=== PATIENT | female | born 1940 | race Hispanic/Latino ===

== ENCOUNTER 2017-11-16 22:37 | Inpatient (IN) | payer BC, MEDICARE ==
[~2017-11-16 22:37] MED LIST: ISOVUE-370 76%-LOCM 1 ML ONE
[2017-11-16] MEDS ORDERED: Ondansetron HCl/PF 4 MG/2 ML Vial ONE ×2 (22:47→22:52)
[2017-11-16 23:26] LABS: #Basophils 0.1 thou/uL (0.0-0.2); #Eosinphils 0.1 thou/uL (0.0-0.7); #Lymphocytes 2.8 thou/uL (1.20-3.40); #Monocytes 1.2 thou/uL (0.11-0.59); #Neutrophils 10.9 thou/uL (1.40-6.50); %Basophils 0.8 % (0.0-1.0); %Eosinophils 0.7 % (0.0-10.0); %Lymphocytes 18.3 % (21.0-51.0); %Monocytes 7.7 % (0.0-10.0); %Neutrophils 72.5 % (42.0-75.0); Hemoglobin 13.7 g/dL (12.0-16.0); Mean Corpuscular HGB CONC 32.2 g/dL (32.0-36.0); Mean Corpuscular Hemoglobin 30.3 pg (27.0-31.0); Mean Corpuscular Volume 94.3 fl (81.0-99.0); Mean Platelet Volume 8.7 fL (7.4-10.4); Platelet Count 364 thou/uL (130-400); RBC Distribution Width 12.7 % (11.5-14.5); Red Blood Cell (RBC) Count 4.52 mill/uL (4.20-5.40); White Blood Cell (WBC) Count 15.1 thou/uL (4.8-10.8)
[2017-11-16 23:39] LABS: ALT (SGPT) 17 U/L (8-55); AST (SGOT) 22 U/L (5-34); Albumin 4.6 g/dL (3.4-4.8); Alkaline Phosphatase 69 U/L (40-150); Anion Gap 18 mmol/L (10-20); BUN (Urea Nitrogen) 21 mg/dL (9.8-20.1); Bilirubin, Total 0.4 mg/dL (0.2-1.2); Calc. Creatinine Clearance 0 mL/min (70-130); Calcium 10.3 mg/dL (7.8-10.44); Carbon Dioxide 25 mmol/L (23-31); Chloride 102 mmol/L (98-107); Estimated GFR-MDRD 61; Globulin 3.3 g/dL (2.4-3.5); Glucose 117 mg/dL (83-110); Lipase 263 U/L (8-78); Potassium 4.9 mmol/L (3.5-5.1); Protein, Total 7.9 g/dL (6.0-8.3); Sodium 140 mmol/L (136-145)
[2017-11-16 23:43] LABS: CKMB 2.6 ng/mL (0-6.6); Troponin I Less than 0.010 ng/mL (< 0.028)
[2017-11-17 01:18] LABS: Bilirubin Negative (Negative); Blood, Urine Negative (Negative); Clarity CLEAR (Clear); Glucose, Urine (Dipstick) Negative (Negative); Leukocyte Negative (Negative); Nitrite Negative (Negative); Protein, Urine (Dipstick) Negative (Neg-Trace); pH, Urine 6.5 (5.0-9.0)
[2017-11-17 01:22] LABS: Specific Gravity, Urine 1.044 (1.002-1.036)
[2017-11-17] MEDS ORDERED: Ondansetron HCl/PF 4 MG/2 ML Vial IVP PRN (03:00)
[2017-11-17] MEDS ORDERED: Ondansetron ODT 4 MG TAB SL PRN (03:00)
[2017-11-17] MEDS ORDERED: Acetaminophen 325 MG TAB PO PRN (03:00)
[2017-11-17] MEDS: Sodium Chloride 0.9% 1,000 ML IV SCH ×3 (03:30→15:45)
--- NOTE | 2017-11-17 03:49 | HP ---
DATE OF ADMISSION: 11/17/2017 TIME OF SERVICE: 0130 hours. PRIMARY CARE PHYSICIAN: Rehan Joyner MD PRIMARY CABINET AND TRIM INSTALLER: Jacobo Moran MD CHIEF COMPLAINT: Abdominal pain, nausea, and vomiting. HISTORY OF PRESENT ILLNESS: Ms. Louis is a pleasant 77-year-old female with history of past small christopher wel obstruction and pancreatitis, hyperlipidemia, hypertension, GERD, mitral regurg, and glaucoma who presents to the emergency department after acute onset of abdominal pain at 1900 hours after dinner. Patient stated that she ate and suddenly developed nausea and vomiting, abdominal pain that seemed to radiate to her back. She has vomited four times and fairly rapid succession, decided to present to the emergency department for evaluation. Here she was seen, she got fluids, Zofran and morphine and feels much better. Labs showed white coun t of 15,000, but no bands, she has normal creatinine, lipase was elevated at 263. A CT scan report w as pending, there is no acute pathology seen by me. We were called for admission. The patient is comfortable. She denies any fevers or chills, no diarrhea or constipation. She has n ot passed gas since being in the ER. PAST MEDICAL HISTORY: 1. Small-bowel obstruction in the past in 2016. 2. Pancreatitis, the last in 2014. 3. Hyperlipidemia. 4. Hypertension. 5. GERD. 6. Mitral regurgitation. 7. Glaucoma. PAST SURGICAL HISTORY: 1. Tonsillectomy remotely. 2. Esophageal tear repair after iatrogenic tear during a dilation. 3. Laminectomy to her back in 1979. 4. Bladder sling in 1999. 5. Appendectomy. 6. Cholecystectomy. She had a gallbladder drain placed in 2003 and since then her gallbladder has n ot been seen on any imaging. 7. Hysterectomy in 1967. 8. Left-hand ganglion cyst removal in 1974 and a right salpingo-oophorectomy in 1981 for benign cyst . HOME MEDICATIONS: 1. Pravastatin 40 mg p.o. at bedtime. 2. Toprol-XL 50 mg p.o. at bedtime. 3. Synthroid 175 mcg daily. 4. Zofran as needed. 5. Timoptic 0.5% both eyes daily. 6. Vitamin B12 of 1000 mcg IM every 2 weeks. 7. Aspirin 81 mg daily. 8. MiraLax 17 grams p.o. daily. 9. Protonix 40 mg p.o. q.a.m. ALLERGIES: STADOL causes a bad reaction and PHENERGAN IV caused a bad reaction too, she could not el ucidate. SOCIAL HISTORY: Negative for habits x3. FAMILY HISTORY: Negative for clotting or bleeding source, no immune dysfunction, no blood tumors. PHYSICAL EXAMINATION: VITAL SIGNS: Temperature 97.9, pulse 81, blood pressure 128/76, respiratory rate 16, sat 98% on 2 li ters. GENERAL: She is awake. She is alert. She is oriented x3. She is well-developed, well-nourished [place] female, appears in no distress. HEENT: Normocephalic, atraumatic. Pupils equal, round, react to light bilaterally. Mucous membrane s are moist. She has no visible lesion, no thrush. NECK: Supple, without lymphadenopathy, JVD, or thyromegaly. She has normal carotid upstrokes withou t bruits. RESPIRATORY: Lungs clear to auscultation bilaterally. She had no wheezes, no rales or rhonchi. LUNGS: She has good air movement with symmetrical chest excursion. CARDIOVASCULAR: She has normal cardiac and regular. She has normal S1, S2. No S3 or S4. She did h ave a holosystolic murmur 3/6 at the apex. ABDOMEN: Soft. It is distended. She has a ventral hernia that is not incarcerated. She has hypera ctive bowel sounds present in all 4 quadrants. There is no tenderness. There is no rebound, rigidit y, or guarding. EXTREMITIES: Show no cyanosis, no clubbing, no edema with 1+ peripheral pulse in the dorsalis pedis and posterior tibial artery. SKIN: Warm, moist, and well perfused. She has no other rashes or lesions. NEUROLOGIC: Cranial nerves II through XII are grossly intact. She has no focal deficits. She has 5 /5 strength in all 4 extremities. She has normal speech pattern. MUSCULOSKELETAL: Normal to inspection. All large joints are normal to inspection. She has no infla mmation. No palpable effusions. LABORATORY DATA: Sodium 140, potassium 4.9, chloride 102, bicarbonate 25, BUN 21, creatinine 0.89, c alcium 10.3, and glucose 117. Her liver functions are completely within normal limits. Lipase 263. CBC showed white count of 15.1, hemoglobin 13.7, hematocrit 42.6, and platelet count 364,000. She h as 73% granulocytes and 80% lymphocytes. Urinalysis is negative. CT scan of the abdomen and pelvis did not show any acute pathology to me. Waiting for final report. ASSESSMENT AND PLAN: 1. Probable acute pancreatitis. Lipase is 263. Make her n.p.o., placed on IV fluids, pain control, nausea control. Placed her on the medical floor and watch. 2. History of small-bowel obstruction. She has good bowel sounds. She had a bowel movement this mo rning. We would not place an NG tube, her nausea is very well controlled now. 3. Hyperlipidemia. We will hold her pravastatin. 4. Hypertension. We will hold her Toprol. 5. Hypothyroidism. We will hold her Synthroid for now. 6. Gastroesophageal reflux disease. We will use IV Protonix. 7. History of mitral regurgitation, stable. 8. Glaucoma. We will continue her Timoptic. Dr. Garland from Surgery has been consulted, we will follow along.
[2017-11-17 03:58] VITALS: BMI 25.2
--- NOTE | 2017-11-17 08:04 | CT ---
PRELIMINARY REPORT/[facility]/EMERGENCY AFTER-HOURS PROCEDURE: EXAM: CT Abdomen and Pelvis With Intravenous Contrast CLINICAL HISTORY: 77 years old, female; Pain; Abdominal pain; Generalized; Patient HX: Abd pain TECHNIQUE: Axial computed tomography images of the abdomen and pelvis with intravenous contrast. Coronal reformatted images were created and reviewed. CONTRAST: 60 mL of ISOVUE administered intravenously. COMPARISON: No relevant prior studies available. FINDINGS: Lower thorax: No acute disease. ABDOMEN: Liver: No acute findings. No mass. Gallbladder and bile ducts: Gallbladder has been removed. There is mild biliary dilation which is mos t likely secondary to cholecystectomy. Pancreas: No acute findings. No mass. No ductal dilation. Spleen: Splenectomy. Adrenals: No acute findings. No mass. Kidneys and ureters: No acute findings. No solid mass. No hydronephrosis. Stomach and bowel: Gastrojejunostomy. Esophageal and gastric fluid distention with dilated proximal a nd mid small bowel loops. Small bowel measures up to 3.7 cm in luminal diameter. Transition point is difficult to delineate but appears to reside in the left lower quadrant. Findings are consistent with mid small bowel obstruction. There is small right paramedian infraumbilical leve l hernia containing short segment of small bowel, however this does not appear to be a transition poi nt. Appendix: The appendix is not visualized. PELVIS: Bladder: No acute findings. No mass. Reproductive: Uterus has been removed. ABDOMEN and PELVIS: Intraperitoneal space: No acute findings. No free air. No significant fluid collection. Bones/joints: Chronic degenerative spinal changes without acute fracture or dislocation. Soft tissues: See above. Vasculature: There are atheromatous changes of the abdominal aorta without aneurysm. Lymph nodes: No acute findings. No enlarged lymph nodes. IMPRESSION: Findings most consistent with mid small bowel obstruction. Gastrojejunostomy. Right ventral wall infraumbilical level hernia containing short segment small bowel. Thank you for allowing us to participate in the care of your patient. Dictated and Authenticated by: Magen Flores MD 11/17/2017 12:55 AM Central Time ([place] & [place]) FINAL REPORT ABDOMEN CT WITH CONTRAST PELVIC CT WITH CONTRAST: Date: 11/16/17 HISTORY: Abdominal pain. Previous surgery. Previous pancreatitis. History of small bowel obstruction. COMPARISON: 06/12/16. TECHNIQUE: Abdomen and pelvic CT are performed with IV contrast. Enteric contrast not administered. Coronal refo rmatted images submitted for interpretation. FINDINGS: This report is in agreement with the preliminary report by Kamla. There is a right ventral abdominal w all hernia containing short segment of small bowel. No associated bowel incarceration. Findings are s imilar to the previous examination. Though there is evidence of a small bowel obstruction, this does not appear to be a transition point. Previous postsurgical changes have been described in the prelimi nary report by Kamla. There is fluid attenuation in the esophagus. Associated hiatal hernia is noted. IMPRESSION: Small bowel obstruction. Additional findings as above. POS: [facility]
[2017-11-17] MEDS ORDERED: Pantoprazole 40 MG VIAL IVP SCH (09:00)
[2017-11-17] MEDS: Timolol 0.5% Ophth Soln 5 ml Bottle EA EYE SCH (09:18)
[2017-11-17] MEDS: Ondansetron HCl/PF 4 MG/2 ML Vial IVP PRN ×3 (09:19→22:07)
[2017-11-17 09:22] LABS: #Eosinphils 0.1 thou/uL (0.0-0.7); #Lymphocytes 2.5 thou/uL (1.20-3.40); #Neutrophils 6.5 thou/uL (1.40-6.50); %Basophils 0.2 % (0.0-1.0); %Eosinophils 1.3 % (0.0-10.0); %Lymphocytes 24.7 % (21.0-51.0); %Neutrophils 63.8 % (42.0-75.0); Hemoglobin 11.5 g/dL (12.0-16.0); Mean Corpuscular HGB CONC 32.1 g/dL (32.0-36.0); Mean Corpuscular Hemoglobin 30.3 pg (27.0-31.0); Mean Corpuscular Volume 94.5 fl (81.0-99.0); Platelet Count 325 thou/uL (130-400); RBC Distribution Width 12.6 % (11.5-14.5); Red Blood Cell (RBC) Count 3.78 mill/uL (4.20-5.40); White Blood Cell (WBC) Count 10.2 thou/uL (4.8-10.8)
[2017-11-17 09:46] LABS: ALT (SGPT) 17 U/L (8-55); AST (SGOT) 27 U/L (5-34); Albumin 3.4 g/dL (3.4-4.8); Alkaline Phosphatase 55 U/L (40-150); Anion Gap 10 mmol/L (10-20); BUN (Urea Nitrogen) 14 mg/dL (9.8-20.1); Bilirubin, Total 0.4 mg/dL (0.2-1.2); Calc. Creatinine Clearance 70 mL/min (70-130); Calcium 8.3 mg/dL (7.8-10.44); Carbon Dioxide 28 mmol/L (23-31); Chloride 105 mmol/L (98-107); Estimated GFR-MDRD 82; Globulin 2.4 g/dL (2.4-3.5); Glucose 96 mg/dL (83-110); Lipase 116 U/L (8-78); Magnesium 1.8 mg/dL (1.6-2.6); Potassium 3.8 mmol/L (3.5-5.1); Protein, Total 5.8 g/dL (6.0-8.3); Sodium 139 mmol/L (136-145)
[2017-11-17] MEDS ORDERED: Polyethylene Glycol 3350 17 GM Packet PO PRN (13:46)
--- NOTE | 2017-11-17 13:49 | PDOC.PN ---
- Subjective Encounter Start Date: 11/17/17 Encounter Start Time: 13:05 Subjective: f/u for acute pancreatitis and partial SBO tx with NPO, IVF's and pain -: control. Feeling much better today. No n/v. No abd pain. - Objective Resuscitation Status: Resuscitation Status FULL:Full Resuscitation MAR Reviewed: Yes Vital Signs & Weight: Vital Signs (12 hours) Temp Pulse Resp BP BP Pulse Ox 11/17/17 11:16 98.1 F 73 18 113/71 96 11/17/17 09:18 86 143/85 H 11/17/17 08:00 98.1 F 73 18 11/17/17 07:42 97.7 F 86 18 143/85 H 96 11/17/17 04:10 98.0 F 85 18 96 11/17/17 04:00 98.0 F 85 18 96 11/17/17 03:06 98.0 F 85 18 150/84 H 97 Weight Weight 147 lb 0.773 oz I&O: 11/16/17 11/17/17 11/18/17 06:59 06:59 06:59 Intake Total 375 Balance 375 Result Diagrams: 11/17/17 08:57 11/17/17 08:57 Additional Labs: Microbiology 11/17/17 01:00 Urine clean catch Urine Culture - Preliminary NO GROWTH AT 12 HOURS Laboratory Tests 11/16/17 11/16/17 11/17/17 22:51 22:51 08:57 WBC 15.1 H Lipase 263 H 116 H Radiology Reviewed by me: Yes (CT abd/pelv - + SBO) Phys Exam - Physical Examination Constitutional: NAD HEENT: PERRLA, oral pharynx no lesions Neck: no JVD, supple Respiratory: no wheezing, clear to auscultation bilateral Cardiovascular: RRR Gastrointestinal: soft, non-tender, no distention, positive bowel sounds Musculoskeletal: no edema, pulses present Neurological: normal sensation, moves all 4 limbs Psychiatric: A&O x 3 Skin: normal turgor, cap refill <2 seconds Dx/Plan (1) Small bowel obstruction Code(s): K56.69 - OTHER INTESTINAL OBSTRUCTION * DO NOT USE * Status: Acute Comment: Clinically resolving, start clear liquids, decrease IVF 75ml/h, OOB/ ambulate (2) Acute pancreatitis Code(s): K85.9 - ACUTE PANCREATITIS, UNSPECIFIED * DO NOT USE * Status: Acute Comment: Improved, ? etiology, repeat Lipase in am, start clear liquids (3) Nausea & vomiting Code(s): R11.2 - NAUSEA WITH VOMITING, UNSPECIFIED Status: Acute Comment: Secondary to #1, #2, resolved (4) HTN (hypertension) Code(s): I10 - ESSENTIAL (PRIMARY) HYPERTENSION Status: Chronic Qualifiers: Hypertension type: essential hypertension Qualified Code(s): I10 - Essential (primary) hypertension Comment: Resume Metoprolol - Plan plan discussed w/ family, out of bed/ambulate, DVT proph w/SCDs Stable overall -: Decrease IVF 75ml/h -: Start clear liquids -: OOB/ambulate -: AM lab: CMP, CBC, Lipase * Likely home in 24h if continues clinical improvement and tolerates diet
[2017-11-17] MEDS: Acetaminophen 325 MG TAB PO PRN (22:03)
[2017-11-18] MEDS: Sodium Chloride 0.9% 1,000 ML IV SCH (03:35)
[2017-11-18 05:36] LABS: ALT (SGPT) 13 U/L (8-55); AST (SGOT) 18 U/L (5-34); Albumin 3.1 g/dL (3.4-4.8); Alkaline Phosphatase 51 U/L (40-150); Anion Gap 9 mmol/L (10-20); BUN (Urea Nitrogen) 8 mg/dL (9.8-20.1); Bilirubin, Total 0.5 mg/dL (0.2-1.2); Calc. Creatinine Clearance 73 mL/min (70-130); Calcium 8.2 mg/dL (7.8-10.44); Carbon Dioxide 26 mmol/L (23-31); Chloride 109 mmol/L (98-107); Estimated GFR-MDRD 86; Globulin 2.3 g/dL (2.4-3.5); Glucose 81 mg/dL (83-110); Lipase 29 U/L (8-78); Potassium 3.8 mmol/L (3.5-5.1); Protein, Total 5.4 g/dL (6.0-8.3); Sodium 140 mmol/L (136-145)
[2017-11-18 06:00] LABS: Band 5 % (5-11); Eosinophils 2 % (0-10); Lymphocytes 41 % (21-51); MDiff Complete? YES; Mean Corpuscular HGB CONC 31.8 g/dL (32.0-36.0); Mean Corpuscular Hemoglobin 30.3 pg (27.0-31.0); Mean Corpuscular Volume 95.4 fl (81.0-99.0); Mean Platelet Volume 8.3 fL (7.4-10.4); Monocytes 8 % (0-10); Neutrophil 44 % (42-75); Platelet Count 307 thou/uL (130-400); RBC Distribution Width 12.7 % (11.5-14.5); Red Blood Cell (RBC) Count 3.63 mill/uL (4.20-5.40); White Blood Cell (WBC) Count 5.9 thou/uL (4.8-10.8)
[2017-11-18] MEDS: Levothyroxine Sodium 75 MCG TAB PO SCH (06:26)
[2017-11-18] MEDS: Timolol 0.5% Ophth Soln 5 ml Bottle EA EYE SCH (08:22)
[2017-11-18] MEDS ORDERED: Furosemide 20 MG/2 ML VIAL SLOW IVP SCH (10:00)
[2017-11-18] MEDS: Ondansetron HCl/PF 4 MG/2 ML Vial IVP PRN (11:49)
--- NOTE | 2017-11-18 11:51 | PDOC.PN ---
- Subjective Encounter Start Date: 11/18/17 Encounter Start Time: 08:00 Pt seen for followup re: bowel obstruction. Passing flatus, tolerating clear fluid diet well. No nausea or vomiting. No abdo cramps. - Objective Resuscitation Status: Resuscitation Status FULL:Full Resuscitation Vital Signs & Weight: Vital Signs (12 hours) Temp Pulse Resp BP BP Pulse Ox 11/18/17 08:33 98.2 F 75 16 128/74 93 L 11/18/17 08:22 65 128/74 11/18/17 08:00 98.2 F 75 16 93 L Weight Weight 147 lb 0.773 oz I&O: 11/17/17 11/18/17 11/19/17 06:59 06:59 06:59 Intake Total 375 3510 Balance 375 3510 Result Diagrams: 11/18/17 04:43 11/18/17 04:43 Phys Exam - Physical Examination Constitutional: NAD HEENT: moist MMs Neck: supple Respiratory: clear to auscultation bilateral Cardiovascular: RRR Gastrointestinal: soft, non-tender, positive bowel sounds Neurological: moves all 4 limbs Psychiatric: normal affect Skin: no rash Dx/Plan (1) Bowel obstruction Code(s): K56.609 - UNSP INTESTNL OBST, UNSP TO PARTIAL VERSUS COMPLETE OBST Status: Acute (2) HTN (hypertension) Code(s): I10 - ESSENTIAL (PRIMARY) HYPERTENSION Status: Chronic Qualifiers: Hypertension type: essential hypertension Qualified Code(s): I10 - Essential (primary) hypertension (3) GERD (gastroesophageal reflux disease) Code(s): K21.9 - GASTRO-ESOPHAGEAL REFLUX DISEASE WITHOUT ESOPHAGITIS Status: Chronic (4) Acute pancreatitis Code(s): K85.9 - ACUTE PANCREATITIS, UNSPECIFIED * DO NOT USE * Status: Resolved - Plan * . Pt clinically improving. Advance diet to full fluid. gastrograffin study. Start Lasix, stop IV fluids (pt was supposed on lasix at home, did not start it yet). Review of Systems - Review of Systems Respiratory: negative: Cough, Dry, Shortness of Breath, Hemoptysis, SOB with Excertion, Pleuritic Pain, Sputum, Wheezing Cardiovascular: negative: chest pain, palpitations, orthopnea, paroxysmal nocturnal dyspnea, edema, light headedness Gastrointestinal: Constipation. negative: Nausea, Vomiting, Abdominal Pain, Diarrhea, Melena, Hematochezia - Medications/Allergies Allergies/Adverse Reactions: Allergies Allergy/AdvReac Type Severity Reaction Status Date / Time butorphanol tartrate Allergy Verified 10/05/14 02:30 [From Stadol] Medications: Current Medications Acetaminophen (Tylenol) 650 mg PO Q4H PRN PRN Reason: Headache/Fever or Pain Last Admin: 11/17/17 22:03 Dose: 650 mg Furosemide (Lasix) 10 mg SLOW IVP NOW [facility] Stop: 11/18/17 12:00 Last Admin: 11/18/17 10:28 Dose: 10 mg Levothyroxine Sodium (Synthroid) 75 mcg PO 0600 [facility] Last Admin: 11/18/17 06:26 Dose: 75 mcg Metoprolol Succinate (Toprol Xl) 50 mg PO DAILY [facility] Last Admin: 11/18/17 08:22 Dose: 50 mg Ondansetron HCl (Zofran) 4 mg IVP Q6H PRN PRN Reason: Nausea/Vomiting Last Admin: 11/18/17 11:49 Dose: 4 mg Pantoprazole Sodium (Protonix) 40 mg PO BID [facility] Last Admin: 11/18/17 08:22 Dose: 40 mg Polyethylene Glycol (Miralax) 17 gm PO DAILYPRN PRN PRN Reason: Constipation Last Admin: 11/18/17 08:29 Dose: 17 gm Timolol Maleate (Timoptic 0.5% Ophth Soln) 1 drop EA EYE DAILY [facility] Last Admin: 11/18/17 08:22 Dose: 1 drop
[2017-11-18] MEDS ORDERED: MD-Gastroview 120 ML BOT ONE (13:00)
--- NOTE | 2017-11-18 13:56 | RAD ---
SMALL BOWEL FOLLOW THROUGH: History Abdominal pain. Abnormal CAT scan. Partial bowel obstruction. FINDINGS: Gastrografin contrast was administered. Small hiatal hernia and gastroesophageal reflux are apparent . Small bowel is now decompressed. At 15 minutes, there is contrast within the colon and rectum. IMPRESSION: 1. Rapid small bowel transit. No evidence of ongoing obstruction. 2. Small hiatal hernia. Gastroesophageal reflux. POS: [facility]
[2017-11-18] MEDS: Acetaminophen 325 MG TAB PO PRN (15:21)
[2017-11-19] MEDS: Acetaminophen 325 MG TAB PO PRN (00:32)
[2017-11-19] MEDS: Levothyroxine Sodium 75 MCG TAB PO SCH (05:33)
[2017-11-19 08:22] LABS: #Basophils 0.1 thou/uL (0.0-0.2); #Eosinphils 0.1 thou/uL (0.0-0.7); #Lymphocytes 2.3 thou/uL (1.20-3.40); #Monocytes 0.6 thou/uL (0.11-0.59); #Neutrophils 3.5 thou/uL (1.40-6.50); %Basophils 1.4 % (0.0-1.0); %Eosinophils 2.2 % (0.0-10.0); %Lymphocytes 35.3 % (21.0-51.0); %Monocytes 8.8 % (0.0-10.0); %Neutrophils 52.4 % (42.0-75.0); Hemoglobin 12.3 g/dL (12.0-16.0); Mean Corpuscular HGB CONC 31.5 g/dL (32.0-36.0); Mean Corpuscular Hemoglobin 29.7 pg (27.0-31.0); Mean Corpuscular Volume 94.3 fl (81.0-99.0); Mean Platelet Volume 7.9 fL (7.4-10.4); Platelet Count 343 thou/uL (130-400); RBC Distribution Width 12.7 % (11.5-14.5); Red Blood Cell (RBC) Count 4.15 mill/uL (4.20-5.40); White Blood Cell (WBC) Count 6.6 thou/uL (4.8-10.8)
[2017-11-19 08:51] LABS: Anion Gap 10 mmol/L (10-20); BUN (Urea Nitrogen) 10 mg/dL (9.8-20.1); Calc. Creatinine Clearance 66 mL/min (70-130); Calcium 9.1 mg/dL (7.8-10.44); Carbon Dioxide 30 mmol/L (23-31); Chloride 103 mmol/L (98-107); Estimated GFR-MDRD 77; Glucose 89 mg/dL (83-110); Potassium 3.6 mmol/L (3.5-5.1); Sodium 139 mmol/L (136-145)
[2017-11-19] MEDS ORDERED: Furosemide 20 MG TAB PO SCH (09:00)
[2017-11-19] MEDS: Timolol 0.5% Ophth Soln 5 ml Bottle EA EYE SCH (09:09)
[2017-11-19 09:10] VITALS: BP 147/82
[2017-11-19 10:14] VITALS: TEMP 98
--- NOTE | 2017-11-19 18:39 | DIS ---
PRIMARY CARE PHYSICIAN: Rehan Joyner M.D. DATE OF ADMISSION: 11/17/2017 DATE OF DISCHARGE: 11/19/2017 DISCHARGE DIAGNOSES: 1. Bowel obstruction. 2. Acute pancreatitis. CONDITION OF PATIENT AT THE TIME OF DISCHARGE: Stable. I assessed Ms. Louis on the day of discharge . She denies any chest pain or shortness of breath. She is tolerating diet well. Vital signs are s table. S1 and S2 are heard, regular. Lungs are clear to auscultation bilaterally. Abdomen is soft, nontender, bowel sounds are heard. DISCHARGE MEDICATIONS: No changes were made to her preadmission home medications as dictated on hist ory and physical note from 11/17/2017. HOSPITAL COURSE: Ms. Louis is a pleasant 77-year-old lady who was admitted to [facility] for abdominal pain. CT scan done at the time of admission showed a right ventral abdomin al wall hernia containing short segment of small bowel without any associated bowel incarceration. T here was evidence of small-bowel obstruction. She also had elevated lipase. She was kept n.p.o. and treated with intravenous fluids. She clinically improved. She started passi ng flatus. On 11/18/2017, she had small bowel x-rays, which did not show any evidence of ongoing obs truction. Her lipase also normalized. Her abdominal pain resolved. She had diarrhea, most likely s econdary to Gastrografin small bowel study. Clostridium difficile toxin test was negative. She is b eing discharged home in a stable condition and advised to follow up with her primary care physician i n 3-5 days. On the day of discharge, she has normal white count, normal hemoglobin, normal platelet count, and a normal Chem-7. Many thanks for allowing me to participate in your patient's care. Please feel free to contact me wi th any questions or concerns. DISCHARGE DESTINATION: Home. TOTAL AMOUNT OF TIME SPENT COORDINATING THIS DISCHARGE: 18 minutes.
== END 2017-11-19 17:06 | disposition home or self-care (01) | DRG 393 ==
LOC: ERS 22:37 → T4-A 11-17 01:20
PROVIDERS: ADMIT Internal Medicine Infectious Disease; ATTEND Internal Medicine Infectious Disease
DX: K43.6 Other and unspecified ventral hernia with obstruction, without gangrene (principal); K85.90 Acute pancreatitis without necrosis or infection, unspecified; I10 Essential (primary) hypertension; K21.9 Gastro-esophageal reflux disease without esophagitis; E78.5 Hyperlipidemia, unspecified; E03.9 Hypothyroidism, unspecified; H40.9 Unspecified glaucoma
CPT/HCPCS: 36415; 74177; 74250; 80048; 80053; 81003; 82553; 83690; 83735; 84484; 85007; 85025; 85027; 87086; 87324; 87449; 93005; 94760; 96372; 96374; 96375; C9113; J1940; J2405

== ENCOUNTER 2018-04-06 08:39 | Outpatient (CLI) | payer MEDICARE, BC ==
[2018-04-06] MEDS ORDERED: ISOVUE-370 76%-LOCM 1 ML ONE (12:11)
== END 2018-04-06 08:40 | disposition home or self-care (01) ==
LOC: BICCT 08:39
PROVIDERS: ATTEND Surgery
DX: R74.8 Abnormal levels of other serum enzymes (principal); R10.13 Epigastric pain; Z98.890 Other specified postprocedural states; K44.9 Diaphragmatic hernia without obstruction or gangrene; Z90.49 Acquired absence of other specified parts of digestive tract; Z90.81 Acquired absence of spleen
CPT/HCPCS: 74170; 82565

== ENCOUNTER 2018-04-09 09:43 | Observation (INO) | payer BC, MEDICARE ==
[2018-04-09 10:20] LABS: #Eosinphils 0.1 thou/uL (0.0-0.7); #Lymphocytes 1.6 thou/uL (1.20-3.40); #Monocytes 0.9 thou/uL (0.11-0.59); #Neutrophils 5.4 thou/uL (1.40-6.50); %Basophils 0.4 % (0.0-1.0); %Eosinophils 1.6 % (0.0-10.0); %Lymphocytes 19.9 % (21.0-51.0); %Monocytes 11.6 % (0.0-10.0); %Neutrophils 66.6 % (42.0-75.0); Hemoglobin 13.4 g/dL (12.0-16.0); Mean Corpuscular HGB CONC 32.9 g/dL (32.0-36.0); Mean Corpuscular Hemoglobin 30.3 pg (27.0-31.0); Mean Corpuscular Volume 92.3 fL (78.0-98.0); Mean Platelet Volume 7.8 fL (7.4-10.4); Platelet Count 328 thou/uL (130-400); RBC Distribution Width 12.2 % (11.5-14.5); Red Blood Cell (RBC) Count 4.42 mill/uL (4.20-5.40); White Blood Cell (WBC) Count 8.2 thou/uL (4.8-10.8)
[2018-04-09 10:34] LABS: ALT (SGPT) 21 U/L (8-55); AST (SGOT) 23 U/L (5-34); Albumin 4.3 g/dL (3.4-4.8); Alkaline Phosphatase 57 U/L (40-150); Anion Gap 15 mmol/L (10-20); BUN (Urea Nitrogen) 24 mg/dL (9.8-20.1); Bilirubin, Total 0.4 mg/dL (0.2-1.2); CK (CPK) 84 U/L (29-168); Calc. Creatinine Clearance 0 mL/min (70-130); Calcium 9.3 mg/dL (7.8-10.44); Carbon Dioxide 24 mmol/L (23-31); Chloride 104 mmol/L (98-107); Estimated GFR-MDRD 62; Globulin 3.3 g/dL (2.4-3.5); Lipase 94 U/L (8-78); Protein, Total 7.6 g/dL (6.0-8.3); Sodium 139 mmol/L (136-145)
[2018-04-09 10:39] LABS: Glucose 50 mg/dL (83-110)
[2018-04-09 10:44] LABS: CKMB 1.4 ng/mL (0-6.6); Troponin I Less than 0.010 ng/mL (< 0.028)
[2018-04-09] MEDS ORDERED: Dextrose 50% Abboject 50 ML SYRINGE ONE (10:52)
--- NOTE | 2018-04-09 11:04 | RAD ---
SINGLE VIEW OF CHEST: Date: 04/09/18 COMPARISON: 05/14/04. HISTORY: Nausea and vomiting. Extreme abdominal pain for the past few days. FINDINGS: Single view of the chest shows a normal sized cardiomediastinal silhouette. There is no evidence of c onsolidation, mass, or pleural effusion. The bones are unremarkable. IMPRESSION: No evidence of acute cardiopulmonary disease. POS: [facility]
[2018-04-09 14:18] VITALS: BMI 23.8
[2018-04-09] MEDS ORDERED: Ondansetron ODT 4 MG TAB SL PRN (14:59)
[2018-04-09] MEDS ORDERED: Ondansetron HCl/PF 4 MG/2 ML Vial IVP PRN (14:59)
[2018-04-09] MEDS ORDERED: D5 1/2 NS w/20 mEq KCL 1,000 ML IV SCH (15:00)
[2018-04-09] MEDS: Dextrose 5 % And 0.9 % NaCl 1,000 ML IV SCH (15:37)
[2018-04-09] MEDS ORDERED: cefTRIAXone\\ROCEPHIN 1 GM in Sodium Chloride 0.9% 100 ML IVPB SCH (16:00)
[2018-04-09] MEDS ORDERED: Acetaminophen 325 MG TAB PO PRN (17:58)
[2018-04-10] MEDS: Dextrose 5 % And 0.9 % NaCl 1,000 ML IV SCH ×2 (02:48→12:38)
[2018-04-10 05:13] LABS: #Basophils 0.1 thou/uL (0.0-0.2); #Eosinphils 0.3 thou/uL (0.0-0.7); #Lymphocytes 2.5 thou/uL (1.20-3.40); #Neutrophils 2.8 thou/uL (1.40-6.50); %Basophils 1.6 % (0.0-1.0); %Monocytes 14.7 % (0.0-10.0); %Neutrophils 41.8 % (42.0-75.0); Hemoglobin 11.7 g/dL (12.0-16.0); Mean Corpuscular HGB CONC 31.5 g/dL (32.0-36.0); Mean Corpuscular Hemoglobin 29.5 pg (27.0-31.0); Mean Corpuscular Volume 93.8 fL (78.0-98.0); Mean Platelet Volume 7.6 fL (7.4-10.4); Platelet Count 291 thou/uL (130-400); RBC Distribution Width 12.2 % (11.5-14.5); Red Blood Cell (RBC) Count 3.95 mill/uL (4.20-5.40); White Blood Cell (WBC) Count 6.6 thou/uL (4.8-10.8)
[2018-04-10 05:29] LABS: Anion Gap 10 mmol/L (10-20); BUN (Urea Nitrogen) 14 mg/dL (9.8-20.1); Calc. Creatinine Clearance 65 mL/min (70-130); Calcium 8.8 mg/dL (7.8-10.44); Carbon Dioxide 30 mmol/L (23-31); Chloride 105 mmol/L (98-107); Estimated GFR-MDRD 78; Glucose 96 mg/dL (83-110); Potassium 4.5 mmol/L (3.5-5.1); Sodium 140 mmol/L (136-145)
[2018-04-10] MEDS ORDERED: Levothyroxine Sodium 75 MCG TAB PO SCH (06:00)
[2018-04-10] MEDS ORDERED: Aspirin 81 mg Enteric Coated Tablet PO SCH (09:00)
[2018-04-10] MEDS ORDERED: Timolol 0.5% Ophth Soln 5 ml Bottle EA EYE SCH (09:00)
[2018-04-10 11:25] VITALS: BP 123/58; TEMP 97.8
--- NOTE | 2018-04-10 13:53 | HP ---
CHIEF COMPLAINT: Abdominal pain, nausea, vomiting. HISTORY OF PRESENT ILLNESS: The patient is a very pleasant 77-year-old female with multiple surgical history, who presented to the hospital with complaints of abdominal pain, nausea, vomiting x1 today. 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 Denies any fevers or chills. The patient stated that about 3-4 days ago, she had s ome soft loose stools which currently have resolved. The patient denies any other mentioned fevers, chills, chest pain or pressure. She did have vomiting x1. She did have abdominal pain. Currently, the patient denies any abdominal pain. She states that she gets abdominal pain about 30-40 minutes a fter she eats. She normally follows up with her GI in [place] who has an extensive surgery on her in [place]. The patient had a CAT scan done on Monday, which essentially was normal. PAST SURGICAL HISTORY: Splenectomy, tonsillectomy, appendectomy, cholecystectomy, laminectomy, hyste rectomy with unilateral oophorectomy. PAST MEDICAL HISTORY: Significant for esophageal wrap back in 2003 for GERD. She had esophageal dil ation. She has had a history of esophageal rupture with mediastinitis. She has a history of a large ventral hernia. She has a history of hypothyroidism, history of hypocholesterolemia. ALLERGIES: She is allergic to STADOL. CURRENT MEDICATIONS: She takes Protonix 40 mg daily, Zofran p.r.n., Timoptic eyedrops to each eye da isra, B12 sublingual, aspirin 81 mg daily, Pravachol 40 mg at bedtime, metoprolol 50 mg daily, and Syn throid. She initially takes 75 mcg daily. SOCIAL HISTORY: She is , has been taking care of her sick . Denies any alcohol or shad g use or smoking history. REVIEW OF SYSTEMS: All negative except for ones mentioned above in the HPI. PHYSICAL EXAMINATION: VITAL SIGNS: Temperature of 97.7, 56, 15, 93% on room air, 127/67. GENERAL: She is awake, alert, oriented. She does not appear in distress. HEENT: Normocephalic, atraumatic. No lymphadenopathy noted. Her mucous membranes does not appear t o be dry. CARDIOVASCULAR: S1, S2 present. No murmurs, rubs or gallops. LUNGS: Clear to auscultation. No rhonchi or wheezes noted. ABDOMEN: Obese. Bowel sounds are present x2. She does have a large hernia that is appreciated. No pain upon palpation to all around her abdomen area; however, she did have some tenderness upon palpa tion around her xiphoid process. EXTREMITIES: No edema. Pedal pulses present x2. NEUROLOGIC: No focal neurological deficits noted. SKIN: Intact. No rashes or lesions noted. LABORATORY DATA: As of the following, WBC of 8.2, hemoglobin 13.4, hematocrit 40.8, platelets of 328 . Chemistry shows sodium of 140, potassium of 4.5, BUN of 14, creatinine 0.72. Lipase initially was 94. TSH was 0.232. ASSESSMENT AND PLAN: The patient is a very pleasant 77-year-old female who presented to the hospital with abdominal pain, nausea, vomiting x1. 1. Abdominal pain, nausea, vomiting. The patient states that she normally has abdominal cramping af ter eating; however, at this time, her pain was intense. She was concerned since she had vomited x1, so she came into the ER for further evaluation given her complex surgical history and concerns for p ossible obstruction. The patient had abdominal CAT scan on Monday, which essentially I did review, i t was normal; however, did mention she does have hiatal hernia. The patient has been following close ly with her GI doctors in [place]. The patient was observed overnight. Her lipase improved from 94- 44. She has been tolerating her food without any vomiting. Her stool was checked. She did have myesha e wbc's that were noted in the stool; however, the patient currently has no more diarrhea, no fever, no chills and WBCs are completely normal. We will continue to monitor the patient overnight. If her symptoms resolve, we will possibly discharge her in the morning; however, her pain around her upper abdomen area could be most likely secondary to musculoskeletal related since she has been lifting her 's wheelchair on a regular basis and has been taking care of her given the fact that he has been very ill recently. The patient did have reproducible pain upon palpation around her xiph oid process and bilateral lower rib area. The patient has had a stress test recently, which was esse ntially negative and troponin that was checked in the ER was also negative. 2. Hypothyroidism. Her TSH was low. I did ask if her medications were recently adjusted, she state d that her medication has not been adjusted recently. We would recommend retesting her TSH in 2-3 mo nths. If it continues to low, she may need to reduce her dose. 3. Deep venous thrombosis prophylaxis. We will put the patient on sequential compression devices.
--- NOTE | 2018-04-11 01:54 | DIS ---
DATE OF ADMISSION: 04/09/2018 DATE OF DISCHARGE: 04/10/2018 DISCHARGE DIAGNOSES: 1. Abdominal pain, nausea, vomiting. 2. Musculoskeletal chest pain. 3. Hypothyroidism. HOSPITAL COURSE: Patient is a very pleasant 77-year-old female with a complex surgical history who p resented to the hospital with a 1-day history of nausea, vomiting, abdominal pain. Patient stated th at prior to admission, she had about 2-3 days of diarrhea with soft stools, in which currently her di arrhea has resolved. Patient stated that she normally has abdominal cramping 30-45 minutes after she eats and for which she follows up very closely with her GI doctor in [place]. Patient stated that s he had some worsening abdominal pain, which radiated to her back which concerned her for possible obs truction, so she came into the hospital for further evaluation. Patient was found to have a mildly e levated lipase 94, which has currently resolved. Patient has been able to tolerate her oral food wit hout any difficulty. Patient did undergo CAT scan of the abdomen and pelvis, which indicated a hiata l hernia. Otherwise, her skin was benign. Patient states that she feels well. The discharge follow up with primary and GI as outpatient. PHYSICAL EXAMINATION: VITAL SIGNS: Temperature of 97.7, 66, 15, and 93% on room air, 127/67. GENERAL: She is awake, alert, oriented x3, does not appear in any distress. CARDIOVASCULAR: S1, S2 present. No murmurs, rubs, or gallops. ABDOMEN: Soft, nontender. Bowel sounds are present x2. She does have a large hiatal hernia. EXTREMITIES: No edema. MEDICATIONS: As the following: She will continue all her home medications Protonix 40 mg b.i.d., Re glan 5 mg t.i.d., metoclopramide 50 mg q.h.s., aspirin 81 mg daily, levothyroxine 75 mcg daily, prava statin 40 mg daily, MiraLax 17 grams daily. The patient also was asked to maybe decrease her dose of levothyroxine to 50 mcg daily; however, she stated that she will follow up with her primary care. We would recommend to check a TSH, since her T SH upon discharge was 0.23, which would indicate decreasing her Synthroid by 25%. She again will fol low up with PCP and GI as an outpatient.
== END 2018-04-10 15:20 | disposition home or self-care (01) ==
LOC: ERS 09:43 → 2SW 11:34
PROVIDERS: ADMIT Internal Medicine; ATTEND Internal Medicine
DX: R10.9 Unspecified abdominal pain (principal); R11.2 Nausea with vomiting, unspecified; R07.89 Other chest pain; E03.9 Hypothyroidism, unspecified; E78.00 Pure hypercholesterolemia, unspecified; K21.9 Gastro-esophageal reflux disease without esophagitis; Z79.82 Long term (current) use of aspirin; Z79.899 Other long term (current) drug therapy; Z88.5 Allergy status to narcotic agent
CPT/HCPCS: 36415; 36416; 71045; 80048; 80053; 82553; 83630; 83690; 83880; 84439; 84443; 84484; 85025; 86140; 87324; 87449; 93005; 96361; 96374; 96375; G0378; J0696; J2270; J7050; Q0162

== ENCOUNTER 2018-08-17 10:08 | Outpatient (CLI) | payer BC, MEDICARE | END 2018-08-17 10:09 | disposition home or self-care (01) | LOC: BICMAMMO 10:08 | PROVIDERS: ATTEND Obstetrics & Gynecology | DX: Z12.31 Encounter for screening mammogram for malignant neoplasm of breast (principal) | CPT/HCPCS: 77063; 77067 ==

== ENCOUNTER 2019-05-19 04:34 | Inpatient (IN) | payer BC, MEDICARE ==
[2019-05-19 05:09] LABS: Hemoglobin 13.9 g/dL (12.0-16.0); Mean Corpuscular HGB CONC 33.3 g/dL (32.0-36.0); Mean Corpuscular Hemoglobin 30.7 pg (27.0-31.0); Mean Corpuscular Volume 92.2 fL (78.0-98.0); Mean Platelet Volume 7.8 fL (7.4-10.4); Platelet Count 381 thou/uL (130-400); RBC Distribution Width 13.4 % (11.5-14.5); Red Blood Cell (RBC) Count 4.53 mill/uL (4.20-5.40); White Blood Cell (WBC) Count 17.6 thou/uL (4.8-10.8)
[2019-05-19] MEDS ORDERED: Famotidine/PF 20 mg/2ml Vial ONE (05:10)
[2019-05-19] MEDS ORDERED: Ondansetron PF 4 MG/2 ML Vial ONE ×2 (05:10→07:01)
[2019-05-19] MEDS ORDERED: Acetaminophen 325 MG TAB ONE (05:10)
[2019-05-19 05:27] LABS: ALT (SGPT) 31 U/L (8-55); AST (SGOT) 25 U/L (5-34); Albumin 4.3 g/dL (3.4-4.8); Alkaline Phosphatase 58 U/L (40-150); Anion Gap 15 mmol/L (10-20); BUN (Urea Nitrogen) 22 mg/dL (9.8-20.1); Bilirubin, Total 0.3 mg/dL (0.2-1.2); Calc. Creatinine Clearance 0 mL/min (70-130); Calcium 9.7 mg/dL (7.8-10.44); Carbon Dioxide 24 mmol/L (23-31); Chloride 100 mmol/L (98-107); Estimated GFR-MDRD 68; Globulin 3.3 g/dL (2.4-3.5); Glucose 144 mg/dL (83-110); Lipase 140 U/L (8-78); Potassium 4.4 mmol/L (3.5-5.1); Protein, Total 7.6 g/dL (6.0-8.3); Sodium 135 mmol/L (136-145)
[2019-05-19 05:48] LABS: Band 9 % (5-11); Eosinophils 1 % (0-10); Lymphocytes 13 % (21-51); MDiff Complete? YES; Monocytes 7 % (0-10); Neutrophil 70 % (42-75); Platelet Morphology Comment Appears Adequate
[2019-05-19 06:17] LABS: Bilirubin Negative (Negative); Blood, Urine Negative (Negative); Clarity Clear (Clear); Glucose, Urine (Dipstick) Normal (Negative); Leukocyte Negative Leu/uL (Negative); Nitrite Negative (Negative); Protein, Urine (Dipstick) 20 mg/dL (Neg-Trace); Urobilinogen Normal mg/dL (Less than 2)
--- NOTE | 2019-05-19 06:46 | CT ---
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 The patient is reporting complaints of abdominal pain and distention on exam last night, as well as nausea, vomiting, and chills. COMPARISON: Prior CT of the abdomen and pelvis dated 11/17/2017 from [facility]. FINDINGS: CHEST: No confluent air space opacity, pleural effusion, or pneumothorax is evident. There are area s of subsegmental volume loss within the left lower lobe. There is fluid distention of the esophagus with wall thickening, suspicious for sequela of an esophag itis. This is slightly more pronounced than seen on the comparison examination. A small hiatal tess ia persists. Post surgical changes of a gastric bypass are again noted. No pathologically enlarged lymph nodes are evident. No pleural effusion or mediastinal fluid collection is evident. There are coronary artery and thoracic aortic calcifications. Fat-containing lipoma within the musculature of the right infraspinatus is present, measuring 4.4 cm. ABDOMEN AND PELVIS: Again, post surgical change of gastric bypass again noted. There are a few mild ly prominent fluid-filled loops of small bowel within the central abdomen, without a definite transit ion zone. No drainable fluid collection is evident. The liver, adrenal glands, and kidneys are normal appearing. The spleen is surgically absent, which was the case on the prior exam. There is a mild amount of retained stool within the colon. The bladder is within normal limits. The uterus is not demonstrated and is presumed to be surgically absent. There are moderate calcifications involving the abdominal and pelvic vasculature. There are numerous injection granulomata overlying the gluteal regions. No acute osseous abnormality is evident. There is an inferior projecting central protrusion that contains vacuum disk gas at L4- L5, measuring 9.9 mm. This does not appear to cause significant central canal narrowing. IMPRESSION: 1. Mildly dilated, fluid-filled loops of small bowel within the central abdomen may reflect a region al ileus related to enteritis or possibly a mild partial small bowel obstruction. 2. Wall thickening and fluid distention of the esophagus is suspicious for sequela of esophagitis re lated to reflux disease. Nonemergent endoscopy for further evaluation is recommended. 3. Small caudad-extending central disk protrusion at L4-L5 with associated internal vacuum disk phen omenon. 4. Post surgical change of gastric bypass with small hiatal hernia. 5. Post surgical change of splenectomy and hysterectomy. POS: BH
[2019-05-19] MEDS ORDERED: Sodium Chloride 0.9% (PF) 10 ML VIAL FS PRN (09:14)
[2019-05-19] MEDS ORDERED: Morphine 2 MG/ML SYRINGE SLOW IVP PRN (09:25)
[2019-05-19] MEDS ORDERED: ISOVUE-370 76%-LOCM 1 ML ONE (10:21)
--- NOTE | 2019-05-19 11:07 | HP ---
CHIEF COMPLAINT: Abdominal pain. HISTORY: This patient is an 78-year-old female, who presented via the emergency department. History is obtained from the patient. HISTORY OF PRESENT ILLNESS: This patient is an 78-year-old female, who has a complicated history of multiple abdominal surgeries, most of which have been performed at [facility] in [place]. She had evidence of a small bowel obstruction in 2015, November of 2017, and April of 2018. She has had significant elevations of her lipase at times, raising the question of possible pancreatitis , although she has never had evidence of that on CT scan. She has also had a history of a distal gastrectomy with a Johnny-en-Y procedure and multiple other surgeries as listed below. The patient reports that she was in her usual state of health until around 9:00 last night. She said she had eaten dinner around 6 p.m., and at 9: 00, she started developing abdominal pain that was described as a severe cramping that radiated to the back. There was no comfortable position for her to obtain. She subsequently had nausea and vomiting. After she vomited, she would feel better for about 30 minutes and then her symptoms would recur. She describes the emesis as being dark green and bilious in nature. She has some chills, but denies any fever. She states that she never actually has a fever. She does have significant amount of acid reflux type symptoms associated with her vomiting. Also of note, the patient has been on a course of Augmentin for what was diagnosed as a sinus infection and she is near the end of that prescription. She states she has been tolerating it fine up to this point. REVIEW OF SYSTEMS: Notable for headache associated with the presumed sinus infection, it is primarily frontal. Other than that, all systems reviewed and all pertinent positives and negatives noted in the history of present illness. PAST MEDICAL HISTORY: Notable for gastroesophageal reflux, hypothyroidism, hyperlipidemia, hypertension, history of mitral valve regurgitation, and at least two prior episodes of apparent bowel obstruction, and apparent intracranial bleed in 2001, not requiring any surgical intervention. PAST SURGICAL HISTORY: Tonsillectomy; appendectomy; uterus suspension; hysterectomy; ganglion cyst removal in left hand; right salpingo-oophorectomy with abscess drainage; spinal diskectomy; pubovaginal sling with rectocele repair; esophageal wrap, anti-reflux procedure in 1999; cataractectomies; paraesophageal hernia repair; she had an esophageal dilatation with rupture and mediastinitis in May of 2004; distal gastrectomy and cholecystectomy in 2007. FAMILY HISTORY: Nothing pertinent to this admission. SOCIAL HISTORY: No alcohol, drugs, or tobacco use. She is full code. Her daughter would be her surrogate decision maker. ALLERGIES: PHENERGAN, STADOL. CURRENT MEDICATIONS: 1. Lasix 20 mg daily. 2. Metoprolol succinate 50 mg at bedtime. 3. Pravastatin 40 mg daily. 4. Synthroid 75 mcg daily. 5. Zofran 4 mg p.r.n. 6. Timoptic eyedrops 0.5% one drop each eye daily. 7. Vitamin D 1000 units two p.o. daily. 8. B12, 1 mL q.2 weeks, which is 1000 mcg. 9. Protonix 40 mg b.i.d. 10. daily. 11. Aspirin 81 mg daily. 12. MiraLAX p.r.n. PHYSICAL EXAMINATION: VITAL SIGNS: BP 154/90, pulse 83, respirations 18, temperature is 97.9, O2 saturations 94% on room air. GENERAL APPEARANCE: Age appropriate female, actually appearing somewhat younger than stated age. Awake, alert, oriented, very pleasant, cooperative. HEENT: MELLISSA. No OP lesions. NECK: Supple and symmetric. No lymphadenopathy, JVD, or bruits. HEART: Regular rate and rhythm without murmurs, gallops, or rubs. LUNGS: Clear to auscultation bilaterally with good chest wall expansion and air exchange. ABDOMEN: Generally soft, possibly mildly distended. She has a ventral hernia, which is not terribly distended and not terribly painful to palpate at this time (the patient reports earlier when this started that it was distended to the point that the skin was stretched and shiny). She does have fairly normal bowel sounds at the moment. EXTREMITIES: She has no cyanosis, clubbing, or edema. PSYCHIATRIC: Normal affect and behavior. NEUROLOGIC: Spontaneous movement of all extremities. No evidence of any focal deficits. Normal cognition. LABORATORY DATA: White count 17.6, hemoglobin 13.9, platelets 381. Sodium 135, potassium 4.4, chloride 100, CO2 is 24, BUN 22, creatinine 0.81, glucose 144. LFTs normal. Lipase is 140. Urinalysis negative. CT chest, abdomen, and pelvis; there are mildly dilated fluid-filled loops of small bowel within the central abdomen, which may reflect regional ileus related to enteritis or possibly a mild partial small bowel obstruction. There is wall thickening and fluid distention of the esophagus suspicious for sequelae of esophagitis related to reflux disease. Postsurgical changes of gastric bypass with small hiatal hernia. Postsurgical change of splenectomy and hysterectomy. IMPRESSION AND PLAN: 1. I believe this patient has a small bowel obstruction, which is incomplete. Certainly, she had abrupt onset with distention, abdominal discomfort, bilious vomiting. She is still somewhat nauseated now, but is no longer vomiting and it appears as though she has decompressed herself a bit. We will give her some IV fluids, p.r.n. antiemetics, and manage the pain as needed. If her vomiting recurs, we will likely place an NG tube to low wall suction at that time. She is certainly at high risk for obstruction, given the multitude of abdominal surgeries and the ventral hernia. We will consult GI as the patient follows with a local office machines wirer, being Dr. Valencia. 2. Leukocytosis, suspect this is demargination and stress reaction due to the bowel obstruction and vomiting. There is no other evidence of specific infection. The patient has been on p.o. Augmentin. Therefore, I am not going to initiate any new antibiotics right now. We will repeat her white count in the morning. If she has any fever or other evidence of infection, we would initiate antibiotics at that time. I would certainly defer to GI if they felt they were indicated. 3. Mild elevation of her lipase, which has been the case with similar situations in the past. She has had no evidence of pancreatitis. 4. Hypothyroidism. Holding medicines for now. 5. Hyperlipidemia. Holding medicines for now. 6. Hypertension. We will continue with the metoprolol. 7. History of a small hiatal hernia with a Johnny-en-Y procedure. We will continue with the PPI. Job ID: [id number] [facility]
[2019-05-19] MEDS: Sodium Chloride 0.9% 1,000 ML IV SCH (11:09)
[2019-05-19 11:14] VITALS: BMI 24.1
[2019-05-19] MEDS: Acetaminophen 325 MG TAB PO PRN ×2 (11:51→17:31)
[2019-05-19] MEDS: Ondansetron PF 4 MG/2 ML Vial IVP PRN (14:25)
[2019-05-19] MEDS: Pantoprazole 40 MG VIAL IVP SCH (19:34)
--- NOTE | 2019-05-19 23:37 | CON ---
DATE OF CONSULTATION: 05/19/2019 CHIEF COMPLAINT: Nausea and vomiting. HISTORY OF PRESENT ILLNESS: Ms. Louis is an 78-year-old woman who woke up last night with multiple episodes of nausea and vomiting. She had had no problems through the day yesterday prior to going to bed. She ate a regular supper last night. She had ongoing nausea and vomiting this morning, so she came onto the emergency room for further care. She reported a cramping abdominal pain across her upper abdomen that radiated through to her back. She has had prior recurrent partial small bowel obstructions and also prior history of pancreatitis. The last time she was in the hospital with abdominal distension and vomiting was a year ago, which her symptoms resolved spontaneously at that time. She had also had a prior hospitalization in November 2017. Again, a small bowel x-ray was done that showed transit of the contrast through her system and she felt better immediately after that. She has a complicated surgical history with a prior esophagectomy following complications from fundoplication. She has had a gastroesophageal anastomosis. She had a CT scan when she came to the emergency room this morning, which showed some small bowel distension and also some inflammatory changes around the distal esophagus. She has had no dysphagia. She had a lot of bilious vomiting this morning, but felt much better through the day today. She did have one small volume of vomiting a couple of hours ago. Her weight has been stable. She has had no fever. No chest pain or shortness of breath. She had a large normal bowel movement yesterday. She has had no blood in stool. No diarrhea or constipation. PAST MEDICAL HISTORY: Gastroesophageal reflux, hypothyroidism, hyperlipidemia, hypertension, thyroid nodule, which she states is being watched, mitral valve regurgitation, small bowel obstructions, intracranial hemorrhage, acute pancreatitis back in 2014 and also recurrent small bowel obstructions in 2015 and 2017. PAST SURGICAL HISTORY: Tonsillectomy, appendectomy, uterus suspension, hysterectomy, ganglion cyst from her left hand, removal of the right fallopian tube and ovary, back surgery for herniated disk, pubovaginal sling and rectocele repair, Toupet fundoplication in 1999, cataract surgery, subsequent erosion of mesh and complications of her fundoplication into the esophagus followed by stricturing. She had esophageal dilation attempted after that. Ultimately, she had leak at the esophageal stricture and fundoplication site. Ultimately, she required distal esophagectomy in [place]. She had prolonged hospitalization after that. She has had additional open abdominal wound for a prolonged period after leak following the esophagectomy. She has had a large ventral hernia that was repaired, but the ventral hernia since recurred. 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 She was told to have this next in 2020 in [place]. Her last colonoscopy was in 2011 in [place]. FAMILY HISTORY: Negative for GI malignancies. SOCIAL HISTORY: No alcohol, tobacco, or drugs. ALLERGIES: PHENERGAN, STADOL. MEDICATIONS: Current inpatient medications include; 1. Aspirin. 2. Enoxaparin. 3. Metoprolol. 4. Pantoprazole. 5. Timolol. Outpatient medications; 1. CoQ10. 2. Timolol eye drops. 3. Pravastatin. 4. MiraLAX 17 g daily. 5. Pantoprazole 40 mg b.i.d. 6. Metoprolol. 7. Furosemide. 8. Levothyroxine. 9. Vitamin B12. 10. Vitamin D3. 11. Aspirin 81 mg daily. REVIEW OF SYSTEMS: Negative x10 systems reviewed except as stated in the history of present illness. PHYSICAL EXAMINATION: VITAL SIGNS: Temperature 97.7, pulse 70, blood pressure 115/78. GENERAL: She is in no acute distress. Alert and oriented x3. HEENT: Eyes have no scleral icterus. Oropharynx is clear without lesions. No cervical or supraclavicular lymphadenopathy. LUNGS: Clear to auscultation bilaterally. HEART: Regular rate and rhythm without murmur. ABDOMEN: Soft. She has a large ventral hernia. Abdomen is nontender. Bowel sounds are present. EXTREMITIES: No lower extremity edema. NEURO: Cranial nerves are grossly intact. LABORATORY DATA: Creatinine 0.81, bilirubin 0.3, AST 25, ALT 31, alkaline phosphatase 58, albumin 4.3, lipase 140. IMPRESSION: 1. Partial small bowel obstruction with CT scan showing small bowel dilation and recurrent vomiting starting late last night. She seems to be doing better this afternoon. Her abdominal pain has pretty much resolved. She did have one episode of small volume emesis this afternoon, but otherwise the vomiting is greatly improved. We will hold off an NG tube for now and plan on a Gastrografin small bowel follow-through tomorrow and advance her diet depending on those findings. 2. Esophagitis with esophageal thickening and inflammatory changes by CT scan. Given the vomiting and her lack of lower esophageal sphincter with her prior distal esophagectomy, she will need to be on high-dose proton pump inhibitor. We will continue with pantoprazole 40 mg twice daily IV until she can take it orally. She has been followed with upper endoscopy in [place] and advised not to have endoscopy elsewhere by her doctors in [place]. She does not have dysphagia. 3. Complicated surgical history with fundoplication and distal esophagectomy and multiple abdominal surgeries. RECOMMENDATIONS: 1. Small bowel follow-through with Gastrografin tomorrow. 2. If she passes the Gastrografin well tomorrow, then she can start on diet and advance as tolerated. 3. She is encouraged to follow up with her GI or surgeon in [place] that she has been following with to schedule upper endoscopy for followup given the thickening of the esophagus noted by CT. 4. If she starts back with more severe nausea and vomiting and more complete obstructive type symptoms, then an NG tube with decompression will have to be placed. Job ID: [id number]
[2019-05-20] MEDS: Morphine 2 MG/ML SYRINGE SLOW IVP PRN ×2 (03:26→08:23)
[2019-05-20] MEDS: Sodium Chloride 0.9% 1,000 ML IV SCH (03:29)
[2019-05-20] MEDS: Ondansetron PF 4 MG/2 ML Vial IVP PRN ×3 (03:31→17:47)
[2019-05-20 05:11] LABS: #Basophils 0.1 thou/uL (0.0-0.2); #Eosinphils 0.2 thou/uL (0.0-0.7); #Lymphocytes 2.2 thou/uL (1.20-3.40); #Monocytes 1.1 thou/uL (0.11-0.59); #Neutrophils 4.9 thou/uL (1.40-6.50); %Basophils 0.9 % (0.0-1.0); %Eosinophils 2.8 % (0.0-10.0); %Lymphocytes 26.1 % (21.0-51.0); %Monocytes 12.5 % (0.0-10.0); %Neutrophils 57.7 % (42.0-75.0); Hemoglobin 11.8 g/dL (12.0-16.0); Mean Corpuscular HGB CONC 31.8 g/dL (32.0-36.0); Mean Corpuscular Hemoglobin 29.7 pg (27.0-31.0); Mean Corpuscular Volume 93.4 fL (78.0-98.0); Mean Platelet Volume 7.6 fL (7.4-10.4); Platelet Count 341 thou/uL (130-400); RBC Distribution Width 13.1 % (11.5-14.5); Red Blood Cell (RBC) Count 3.99 mill/uL (4.20-5.40); White Blood Cell (WBC) Count 8.6 thou/uL (4.8-10.8)
[2019-05-20 05:37] LABS: Anion Gap 11 mmol/L (10-20); BUN (Urea Nitrogen) 11 mg/dL (9.8-20.1); Calc. Creatinine Clearance 62 mL/min (70-130); Calcium 8.6 mg/dL (7.8-10.44); Carbon Dioxide 28 mmol/L (23-31); Chloride 104 mmol/L (98-107); Estimated GFR-MDRD 77; Glucose 90 mg/dL (83-110); Lipase 34 U/L (8-78); Potassium 4.5 mmol/L (3.5-5.1); Sodium 138 mmol/L (136-145)
[2019-05-20] MEDS: Pantoprazole 40 MG VIAL IVP SCH ×2 (08:27→20:27)
[2019-05-20] MEDS: Enoxaparin Sodium 40 MG/0.4 ML SYRINGE SC SCH (08:28)
[2019-05-20] MEDS ORDERED: Pantoprazole 40 MG VIAL IVP SCH ×2 (09:00)
[2019-05-20] MEDS ORDERED: MD-Gastroview 120 ML BOT ONE (10:42)
--- NOTE | 2019-05-20 12:08 | RAD ---
Small bowel series: DATE: 05/20/2019 HISTORY: An 78-year-old female with small bowel obstruction FINDINGS: Oral contrast material reaches the right colon by one hour, and rectum by 1.5 hours. IMPRESSION: No high-grade small bowel obstruction.
[2019-05-20] MEDS: Ketorolac Tromethamine 30 MG/ML VIAL IVP PRN ×2 (12:27→21:53)
--- NOTE | 2019-05-20 13:06 | PDOC.HOSPP ---
- Subjective Encounter Date: 05/20/19 Encounter Time: 13:04 Subjective: Was doing well, but her headache has not resolved. Mostly frontal. Fairly severe. Has been present for weeks. Has not improved with treatment for sinusitis. Had the SBFT this morning. Was ok, but she has had vomiting since then. With her anatomy, she frequently has vomiting if she takes in too much volume at once. Thinks this may be the problem. Had had pain again in the epigastric area radiating to the back. - Objective Vital Signs & Weight: Vital Signs (12 hours) Temp Pulse Resp BP Pulse Ox 05/20/19 12:38 97.8 F 101 H 20 147/96 H 95 05/20/19 08:00 97.8 F 78 18 130/76 93 L Weight Weight 140 lb 14.006 oz I&O: 05/19/19 05/20/19 05/21/19 06:59 06:59 06:59 Intake Total 250 Balance 250 Result Diagrams: 05/20/19 05:02 05/20/19 05:02 ROS - Medication Medications: Active Medications Generic Name Dose Route Start Last Admin Trade Name Freq PRN Reason Stop Dose Admin Acetaminophen 650 mg 05/19/19 11:39 05/19/19 17:31 Tylenol PO 650 mg Q6H PRN Administration Headache/Fever or Pain Enoxaparin Sodium 40 mg 05/20/19 09:00 05/20/19 08:28 Lovenox SC 40 mg 0900 BART Administration Sodium Chloride 1,000 mls @ 50 mls/hr 05/19/19 09:15 05/20/19 03:29 Normal Saline 0.9% IV 1,000 mls .Q20H BART Administration Ketorolac Tromethamine 15 mg 05/20/19 03:44 05/20/19 12:27 Toradol IVP 05/25/19 03:45 15 mg Q6H PRN Administration Pain Morphine Sulfate 2 mg 05/20/19 03:18 05/20/19 08:23 Morphine SLOW IVP 2 mg Q4H PRN Administration Moderate to Severe Pain (6-10) Ondansetron HCl 4 mg 05/19/19 09:06 05/20/19 12:27 Zofran IVP 4 mg Q6H PRN Administration Nausea/Vomiting Pantoprazole Sodium 40 mg 05/19/19 21:00 05/20/19 08:27 Protonix IVP 40 mg BID BART Administration - Exam ill appearing General - other findings: Pale. ENT: normocephalic atraumatic, no oropharyngeal lesions Neck: supple, symmetric, no JVD, no thyromegaly, no lymphadenopathy, no carotid bruit Heart: RRR, no murmur, no gallops, no rubs, normal peripheral pulses Respiratory: CTAB, no wheezes, no rales, no ronchi, normal chest expansion, no tachypnea, normal percussion Gastrointestinal: soft, non-distended, normal bowel sounds, no palpable masses, no hepatomegaly, no splenomegaly, no bruit Gastrointestinal - other findings: Mild tenderness to deep palpation of the epigastrium. Extremities: no cyanosis, no clubbing, no edema Skin: normal turgor Neurological: CN's grossly intact, normal sensation to touch, no weakness, no focal deficits, no new deficit Musculoskeletal: normal tone, normal strength, no muscle wasting Hosp A/P (1) History of Johnny-en-Y gastric bypass Code(s): Z98.84 - BARIATRIC SURGERY STATUS Status: Acute (2) Bowel obstruction Code(s): K56.609 - UNSP INTESTNL OBST, UNSP TO PARTIAL VERSUS COMPLETE OBST Status: Acute (3) Nausea & vomiting Code(s): R11.2 - NAUSEA WITH VOMITING, UNSPECIFIED Status: Acute (4) GERD (gastroesophageal reflux disease) Code(s): K21.9 - GASTRO-ESOPHAGEAL REFLUX DISEASE WITHOUT ESOPHAGITIS Status: Chronic (5) HTN (hypertension) Code(s): I10 - ESSENTIAL (PRIMARY) HYPERTENSION Status: Chronic Qualifiers: Hypertension type: essential hypertension Qualified Code(s): I10 - Essential (primary) hypertension - Plan Lipase is down. Other labs good. Recurrent vomiting and discomfort after the contrast. May be a volume issues. Will watch that. Will CT head and sinuses. Continue PPI. Will discuss with GI.
[2019-05-20] MEDS: Aspirin 81 mg Enteric Coated Tablet PO SCH (13:55)
--- NOTE | 2019-05-20 14:36 | CT ---
Head CT without contrast 05/20/2019: COMPARISON: 01/04/2004 HISTORY: Congestion, headache, nausea and vomiting TECHNIQUE: Axial CT imaging at 5 mm intervals from vertex through skull base without contrast FINDINGS: Imaged paranasal sinuses and mastoid air cells are well aerated. No intracranial hemorrhage, midline shift, or mass effect. No ventricular enlargement. IMPRESSION: No acute findings.
--- NOTE | 2019-05-20 14:44 | CT ---
CT Sinuses WO Con INDICATION: Cephalgia, nausea, nasal congestion COMPARISON: None FINDINGS: Maxillary sinuses: Clear Frontal sinus: Decreased pneumatization of right frontal air cell. Left frontal air cell is patent. Sphenoid sinus: Clear Ethmoid sinus: Clear Mastoid air cells: Clear Nasal Septum: Unremarkable. There is pneumatization of the vertical lamella of the left middle turbin ate. Incidental findings: None of significance. IMPRESSION: No acute process.
[2019-05-20] MEDS: Timolol 0.5% Ophth Soln 5 ml Bottle EA EYE SCH (15:50)
[2019-05-20] MEDS ORDERED: Gaviscon Tablet PO PRN (21:20)
[2019-05-20] MEDS ORDERED: Mag-Al 1200 mg/1200 mg/30 ML UDCUP PO PRN (21:44)
[2019-05-21] MEDS: Sodium Chloride 0.9% 1,000 ML IV SCH (01:54)
[2019-05-21] MEDS: Sucralfate 1 GM TAB PO SCH ×3 (06:06→17:10)
[2019-05-21] MEDS: Enoxaparin Sodium 40 MG/0.4 ML SYRINGE SC SCH (08:27)
[2019-05-21] MEDS: Aspirin 81 mg Enteric Coated Tablet PO SCH (08:28)
[2019-05-21] MEDS: Timolol 0.5% Ophth Soln 5 ml Bottle EA EYE SCH (08:29)
[2019-05-21] MEDS: Pantoprazole 40 MG VIAL IVP SCH (08:29)
[2019-05-21] MEDS: Ketorolac Tromethamine 30 MG/ML VIAL IVP PRN (12:08)
--- NOTE | 2019-05-21 19:03 | PRG ---
DATE OF SERVICE: 05/21/2019 SUBJECTIVE: Ms. Louis is tolerating a solid diet today. She has done well since yesterday afternoon. She did vomit after she had a large volume of Gastrografin, but she has not tolerated large volumes at a time since her previous surgeries. OBJECTIVE: ABDOMEN: Soft, nontender, nondistended. Bowel sounds are present. She has large midline hernia, which is stable. IMPRESSION: 1. Partial small bowel obstruction, resolved. 2. CT scan showing esophagitis in the distal esophagus. She has had a prior distal esophagectomy. RECOMMENDATIONS: 1. We printed a copy of the CT report to take with her to her followup appointment with her GI in [place], as she likely will require upper endoscopy to follow up on the abnormal CT findings. 2. Low-fiber diet over the next couple of weeks. 3. She can discharge home today. Job ID: [id number]
[2019-05-21 19:56] VITALS: BP 129/70; TEMP 97.8
--- NOTE | 2019-05-22 10:01 | DIS ---
DATE OF ADMISSION: 05/19/2019 DATE OF DISCHARGE: 05/21/2019 DISCHARGE DIAGNOSES: 1. Abdominal pain. 2. Nausea and vomiting. 3. Possible partial small bowel obstruction. 4. Cephalgia. HISTORY OF PRESENT ILLNESS: This patient is an 78-year-old female, who presented to the emergency department with some abdominal pain, distention, and nausea and vomiting. In the emergency department, the patient had imaging, which revealed some evidence of partial small-bowel obstruction, some wall thickening, and fluid distention of the esophagus concerning for sequelae of esophagitis, although the patient had prior significant surgical history there. HOSPITAL COURSE: The patient was admitted to the hospital, started on bowel rest and IV fluids. Her vomiting had stopped; therefore, no NG tube was initiated, especially given her lower esophageal findings and gastric surgical history, which included a Johnny-en-Y procedure. The patient was seen in consultation by GI and then underwent a small-bowel follow-through series, which showed no evidence of high-grade blockage that did unfortunately cause the patient to have some vomiting, but she believed was simply due to overwhelming her smaller stomach pouch with too much volume which happens frequently with her. Once that passed, the patient was able to start some clear liquids, advance her diet through the day until she tolerated that without any difficulties. The patient also had persistent headache. She had been on treatment with Augmentin for presumed sinusitis and CT scan of her head and sinuses was obtained, which were unremarkable. Once the patient's pain had resolved, she was eating a regular diet without difficulties. She was felt to be stable for discharge to home. PHYSICAL EXAMINATION: VITAL SIGNS: On the day of discharge, temperature 97.8 pulse 76, respirations 20, O2 saturation 95% on room air, BP 129/70. GENERAL APPEARANCE: Age-appropriate female, in no distress. HEART: Regular rate and rhythm. LUNGS: Clear bilaterally. ABDOMEN: Soft, nondistended. Positive bowel sounds. EXTREMITIES: No cyanosis, clubbing, or edema. DISPOSITION: The patient is discharged to home in stable condition. ACTIVITY: As tolerated. DIET: She will have no dietary restrictions. DISCHARGE MEDICATIONS: She will continue with her usual home medications. Please see the discharge medication list for further details. FOLLOWUP: She will follow up with Dr. Rehan Joyner. She can return to the hospital should she have any problems prior to that time. Time spent in discharge activities, including face to face time with the patient , was 32 min. Job ID: [id number] MTDD
--- NOTE | 2019-05-23 09:51 | PQF ---
[facility] Ancillary Crystal Reports Winform Viewer SAVANAH REEVES NAYLA MOON MD [id number] [id number] CLINICAL DOCUMENTATION CLARIFICATION FORM: POST DISCHARGE Addendum to original discharge summary date: ____ Late entry note date: __ DATE: 05-23-2019 ATTN:Nayla Licea Please exercise your independent, professional judgment in responding to the clarification form. Clinical indicators are provided on the bottom of this form for your review Can you please specify the clinical significance of the indicators below. Please check appropriate box(s): [ ] Hyponatremia [ ] Pseudohyponataremia [ x ] Insignificant laboratory finding [ ] Other diagnosis please specify [ ] Unable to determine For continuity of documentation, please document condition throughout progress notes and discharge summary. Thank You. CLINICAL INDICATORS : - "Sodium 135" - Laboratory 05/19 - "CC: abdominal pain" - H&P 05/19 Dr. Radford - "She subsequently had nausea and vomiting" - H&P 05/19 Dr. Radford - "emesis as being dark green and bilious in nature" - H&P 05/19 Dr. Radford - "She had some chills" - H&P 05/19 Dr. Radford - "headache- PN Hospitalist 05/20 Dr. Radford RISK FACTORS - 78 years old female - H&P 05/19 Dr. Radford - GERD with esophagitis - H&P 05/19 Dr. Radford - Use of diuretic (Lasix 20mg daily) - H&P 05/19 Dr. Radford - Partial small bowel obstruction Consult 05/19 Dr. Bolton TREATMENT - IVF - H&P 05/19 Dr. Radford - Sodium Chloride 0.9% 1000ml IV MAR - Monitoring of blood chemisty Laboratory 05/19 (This form is maintained as a part of the permanent medical record) 2014 [employer] All Rights Reserved [email or web address] [not provided] MTDD
== END 2019-05-21 19:56 | disposition home or self-care (01) | DRG 390 ==
LOC: ERS 04:34 → T4-B 09:47
PROVIDERS: ADMIT Internal Medicine; ATTEND Internal Medicine
DX: K56.600 Partial intestinal obstruction, unspecified as to cause (principal); E03.9 Hypothyroidism, unspecified; E78.5 Hyperlipidemia, unspecified; J32.1 Chronic frontal sinusitis; K21.0 Gastro-esophageal reflux disease with esophagitis; I10 Essential (primary) hypertension; Z90.49 Acquired absence of other specified parts of digestive tract; Z79.899 Other long term (current) drug therapy; Z79.82 Long term (current) use of aspirin; Z90.710 Acquired absence of both cervix and uterus; Z90.721 Acquired absence of ovaries, unilateral; Z88.8 Allergy status to other drugs, medicaments and biological substances
CPT/HCPCS: 36415; 70450; 71260; 74177; 74250; 80048; 80053; 81003; 83605; 83690; 84484; 85025; 93005; 96361; 96374; 96375; 96376; C9113; J1650; J1885; J2270; J2405; Q9963; Q9966; S0028

== ENCOUNTER 2019-09-03 11:23 | Outpatient (CLI) | payer MEDICARE, BC ==
--- NOTE | 2019-09-03 13:04 | MMO ---
Bilateral MAMMO Bilat Screen [facility]. CLINICAL HISTORY: Patient is 79 years old and is seen for screening. The patient has no family history of breast cancer. The patient has no personal history of cancer. The patient has a history of bilateral Excisional Biopsy - benign. VIEWS: The views performed were: bilateral craniocaudal with tomosynthesis and bilateral mediolateral oblique with tomosynthesis. FILMS COMPARED: The present examination has been compared to prior imaging studies performed at [facility] on 08/05/2015, 08/08/2016, 08/14/2017 and 08/17/2018. This study has been interpreted with the assistance of computer-aided detection. MAMMOGRAM FINDINGS: There are scattered fibroglandular densities. There are stable benign appearing calcifications seen in both breasts. There are no suspicious masses, suspicious calcifications, or new areas of architectural distortion. IMPRESSION: THERE IS NO MAMMOGRAPHIC EVIDENCE OF MALIGNANCY. A ROUTINE FOLLOW-UP MAMMOGRAM IN 1 YEAR IS RECOMMENDED. THE RESULTS OF THIS EXAM WERE SENT TO THE PATIENT. ACR BI-RADS Category 2 - Benign finding MAMMOGRAPHY NOTE: 1. A negative mammogram report should not delay a biopsy if a dominant of clinically suspicious mass is present. 2. Approximately 10% to 15% of breast cancers are not detected by mammography. 3. Adenosis and dense breasts may obscure an underlying neoplasm. Reported by: ANTONETTE DEWEY MD Electonically Signed: [id number]
== END 2019-09-03 11:24 | disposition home or self-care (01) ==
LOC: BICMAMMO 11:23
PROVIDERS: ATTEND Obstetrics & Gynecology
DX: Z12.31 Encounter for screening mammogram for malignant neoplasm of breast (principal); Z91.89 Other specified personal risk factors, not elsewhere classified
CPT/HCPCS: 77063; 77067

== ENCOUNTER 2020-06-07 03:26 | Emergency (ER) | payer MEDICARE, BC ==
[2020-06-07] MEDS ORDERED: Ondansetron PF 4 MG/2 ML Vial ONE (03:45)
[2020-06-07] MEDS ORDERED: Meclizine HCl 25 MG TAB ONE (03:45)
[2020-06-07 04:23] LABS: #Basophils 0.1 thou/uL (0.0-0.2); #Eosinphils 0.2 thou/uL (0.0-0.7); #Lymphocytes 2.3 thou/uL (1.20-3.40); #Monocytes 0.7 thou/uL (0.11-0.59); #Neutrophils 3.8 thou/uL (1.40-6.50); %Basophils 0.8 % (0.0-1.0); %Eosinophils 2.7 % (0.0-10.0); %Lymphocytes 32.4 % (21.0-51.0); %Monocytes 10.3 % (0.0-10.0); %Neutrophils 53.7 % (42.0-75.0); Hemoglobin 12.5 g/dL (12.0-16.0); Mean Corpuscular HGB CONC 32.7 g/dL (32.0-36.0); Mean Corpuscular Hemoglobin 31.2 pg (27.0-31.0); Mean Corpuscular Volume 95.4 fL (78.0-98.0); Mean Platelet Volume 8.7 fL (7.4-10.4); Platelet Count 339 thou/uL (130-400); RBC Distribution Width 12.3 % (11.5-14.5); Red Blood Cell (RBC) Count 4.02 mill/uL (4.20-5.40)
[2020-06-07 04:44] LABS: ALT (SGPT) 17 U/L (8-55); AST (SGOT) 21 U/L (5-34); Alkaline Phosphatase 55 U/L (40-110); Anion Gap 14 mmol/L (10-20); BUN (Urea Nitrogen) 23 mg/dL (9.8-20.1); Bilirubin, Total 0.3 mg/dL (0.2-1.2); Calc. Creatinine Clearance 0 mL/min (70-130); Calcium 9.2 mg/dL (7.8-10.44); Carbon Dioxide 29 mmol/L (23-31); Chloride 104 mmol/L (98-107); Estimated GFR-MDRD 68; Globulin 3.1 g/dL (2.4-3.5); Glucose 102 mg/dL (83-110); Potassium 3.8 mmol/L (3.5-5.1); Protein, Total 7.1 g/dL (6.0-8.3); Sodium 143 mmol/L (136-145)
[2020-06-07] MEDS ORDERED: Promethazine 25 MG TAB ONE (04:59)
== END 2020-06-07 06:48 | disposition home or self-care (01) ==
LOC: ERS 03:26
DX: R42 Dizziness and giddiness (principal); R11.0 Nausea; E03.9 Hypothyroidism, unspecified; E78.5 Hyperlipidemia, unspecified; E78.00 Pure hypercholesterolemia, unspecified; I10 Essential (primary) hypertension; K21.9 Gastro-esophageal reflux disease without esophagitis; Z79.899 Other long term (current) drug therapy; Z79.82 Long term (current) use of aspirin
CPT/HCPCS: 80053; 84484; 85025; 93005; 96374; J2405; Q0169

== ENCOUNTER 2020-09-07 08:59 | Outpatient (CLI) | payer MEDICARE, BC ==
--- NOTE | 2020-09-07 11:12 | MMO ---
Bilateral MAMMO Bilat Screen [facility]. CLINICAL HISTORY: Patient is 80 years old and is seen for screening. The patient has no family history of breast cancer. The patient has no personal history of cancer. The patient has a history of bilateral Excisional Biopsy - benign. VIEWS: The views performed were: bilateral craniocaudal with tomosynthesis and bilateral mediolateral oblique with tomosynthesis. FILMS COMPARED: The present examination has been compared to prior imaging studies performed at [facility] on 08/08/2016, 08/14/2017, 08/17/2018 and 09/03/2019. This study has been interpreted with the assistance of computer-aided detection. MAMMOGRAM FINDINGS: There are scattered fibroglandular densities. Benign calcifications are noted bilaterally. There are no suspicious masses, suspicious calcifications, or new areas of architectural distortion. IMPRESSION: THERE IS NO MAMMOGRAPHIC EVIDENCE OF MALIGNANCY. A ROUTINE FOLLOW-UP MAMMOGRAM IN 1 YEAR IS RECOMMENDED. THE RESULTS OF THIS EXAM WERE SENT TO THE PATIENT. ACR BI-RADS Category 2 - Benign finding MAMMOGRAPHY NOTE: 1. A negative mammogram report should not delay a biopsy if a dominant of clinically suspicious mass is present. 2. Approximately 10% to 15% of breast cancers are not detected by mammography. 3. Adenosis and dense breasts may obscure an underlying neoplasm. Reported by: GIL MURILLO MD Electonically Signed: [id number]
== END 2020-09-07 09:00 | disposition home or self-care (01) ==
LOC: BICMAMMO 08:59
PROVIDERS: ATTEND Obstetrics & Gynecology
DX: Z12.31 Encounter for screening mammogram for malignant neoplasm of breast (principal); Z91.89 Other specified personal risk factors, not elsewhere classified
CPT/HCPCS: 77063; 77067

== ENCOUNTER 2020-11-26 08:47 | Outpatient (CLI) | payer MEDICARE, BC ==
--- NOTE | 2020-11-26 10:26 | CT ---
CT of the abdomen and pelvis with and without contrast: 11/26/2020 HISTORY: 80-year-old female with abdominal pain, nausea, history of esophageal surgery with partial g astrectomy, multiple prior episodes of bowel obstruction TECHNIQUE: Axial CT imaging obtained at 5 mm intervals from the lung bases through the pubic symphysi s without contrast. Subsequently, axial CT imaging at 0.63 mm intervals obtained through the abdomen and pelvis with IV contrast and Volumen effacing a CT enterography protocol. Coronal and sagi ttal reformatted imaging obtained. FINDINGS: The imaged lung bases are unremarkable aside from mild scar in the lingula. No free intrape ritoneal air or fluid. There is gas in the urinary bladder, etiology uncertain. No Bonilla catheter is present on this exam. There is a small stable hiatal hernia when compared to the 05/19/2019 exam. There are suture lines ass ociated with the stomach consistent with the provided history of partial gastrectomy. Upper abdominal gastrojejunostomy is noted. Additional small bowel suture lines are noted suggesting jejunojejunostomy in the mid left abdomen. A broad-based upper abdominal ventral hernia is noted containing multiple nonobstructed loops of smal l bowel, similar when compared to the 05/19/2019 exam. Gallbladder appears surgically absent. No post cholecystectomy clips are present. The liver, pancreas , and adrenal glands appear grossly unremarkable. The spleen appears surgically absent. The kidneys demonstrate no acute findings. The uterus appears surgically absent. Significant stool is noted within the colon, particularly distally. There is extensive diverticulosis involving the transverse colon, splenic flexure, and descending colon with no evidence for diverticulitis. There is a lower abdominal ventral hernia in the anterior right para midline region on axial image 46 3 containing small bowel, similar when compared to the 05/19/2019 examination. The small bowel throughout the abdomen/pelvis demonstrates mild distention and is fluid-filled, consi stent with the ingested contrast media. There is no convincing evidence for small bowel obstruction. There are scattered areas of atherosclerotic calcification of the abdominal aorta and its branches. No abdominal or pelvic lymphadenopathy is seen. No acute osseous abnormality is evident. There are scattered areas of mid thoracic spine degenerative change and lower lumbar spine degenerative change. IMPRESSION: Postoperative changes as detailed above. Multifocal ventral hernia formation as detailed above, similar when compared to the prior examination. No convincing evidence for bowel obstruction is seen on this examination. There is gas within the urinary bladder which could signify fistulous communication with bowel in the proper clinical setting. Clinical correlation is essential. Diverticulosis without evidence for diverticulitis.
[2020-11-26] MEDS ORDERED: Iopamidol 370 76% 100 ML VIAL ONE (13:50)
== END 2020-11-26 08:48 | disposition home or self-care (01) ==
LOC: CT 08:47
PROVIDERS: ATTEND Internal Medicine Gastroenterology
DX: K56.609 Unspecified intestinal obstruction, unspecified as to partial versus complete obstruction (principal); R11.0 Nausea; K21.9 Gastro-esophageal reflux disease without esophagitis; K43.9 Ventral hernia without obstruction or gangrene; N32.89 Other specified disorders of bladder; K57.30 Diverticulosis of large intestine without perforation or abscess without bleeding; Z90.49 Acquired absence of other specified parts of digestive tract
CPT/HCPCS: 74178; 82565; Q9967

== ENCOUNTER 2020-12-08 07:04 | Outpatient (CLI) | payer MEDICARE, BC ==
[2020-12-08] MEDS ORDERED: Magnevist 469MG/ML 20 ML VIAL ONE (11:04)
== END 2020-12-08 07:05 | disposition home or self-care (01) ==
LOC: MRI 07:04
PROVIDERS: ATTEND Internal Medicine Gastroenterology
DX: R10.13 Epigastric pain (principal); Z90.49 Acquired absence of other specified parts of digestive tract; Z90.81 Acquired absence of spleen
CPT/HCPCS: 74183; A9579

== ENCOUNTER 2021-01-22 21:40 | Observation (INO) | payer MEDICARE, BC ==
[2021-01-23] MEDS ORDERED: Labetalol HCl 100 MG/20 ML VIAL SLOW IVP PRN (01:41)
[2021-01-23] MEDS ORDERED: hydrALAZINE 20 MG/ML VIAL SLOW IVP PRN (01:41)
[2021-01-23] MEDS ORDERED: Calcium Carbonate 500 MG ChewTAB PO PRN (01:45)
[2021-01-23] MEDS ORDERED: Acetaminophen 325 MG TAB PO PRN (01:45)
[2021-01-23] MEDS ORDERED: Aspirin 325 MG TAB PO SCH (01:45)
[2021-01-23] MEDS ORDERED: Ondansetron ODT 4 MG TAB PO PRN (01:45)
[2021-01-23] MEDS ORDERED: Meclizine HCl 25 MG TAB PO SCH ×2 (02:00→09:00)
[2021-01-23 03:00] VITALS: BMI 23.8
[2021-01-23 03:09] LABS: SARS-CoV-2 NAA Rapid Test Not Detected (NotDetected)
[2021-01-23 05:12] LABS: #Basophils 0.1 thou/uL (0.0-0.2); #Eosinphils 0.2 thou/uL (0.0-0.7); #Lymphocytes 3.1 thou/uL (1.20-3.40); #Monocytes 1.1 thou/uL (0.11-0.59); #Neutrophils 4.9 thou/uL (1.40-6.50); %Basophils 0.8 % (0.0-1.0); %Eosinophils 2.5 % (0.0-10.0); %Monocytes 11.8 % (0.0-10.0); %Neutrophils 51.8 % (42.0-75.0); Hemoglobin 11.6 g/dL (12.0-16.0); Mean Corpuscular HGB CONC 32.2 g/dL (32.0-36.0); Mean Corpuscular Hemoglobin 30.4 pg (27.0-31.0); Mean Corpuscular Volume 94.2 fL (78.0-98.0); Mean Platelet Volume 7.8 fL (7.4-10.4); Platelet Count 269 thou/uL (130-400); RBC Distribution Width 12.3 % (11.5-14.5); Red Blood Cell (RBC) Count 3.84 mill/uL (4.20-5.40); White Blood Cell (WBC) Count 9.5 thou/uL (4.8-10.8)
[2021-01-23 05:30] LABS: Anion Gap 11 mmol/L (10-20); BUN (Urea Nitrogen) 18 mg/dL (9.8-20.1); Calc. Creatinine Clearance 57 mL/min (70-130); Calcium 8.8 mg/dL (7.8-10.44); Carbon Dioxide 27 mmol/L (23-31); Cardiac Risk 3.3 (Less than 4.5); Chloride 107 mmol/L (98-107); Cholesterol 152 mg/dl (< 200 Desired); Glucose 88 mg/dL (83-110); HDL Cholesterol 46 mg/dL (>60 Neg Risk); LDL Cholesterol, Calculated 83 mg/dL; Potassium 3.5 mmol/L (3.5-5.1); Sodium 141 mmol/L (136-145); Triglycerides 113 mg/dL (Less than 150)
[2021-01-23] MEDS ORDERED: Levothyroxine Sodium 50 MCG TAB PO SCH (06:00)
[2021-01-23] MEDS: Ondansetron PF 4 MG/2 ML Vial IVP PRN (10:33)
[2021-01-23] MEDS: Timolol 0.5% Ophth Soln 5 ml Bottle EA EYE SCH (10:33)
[2021-01-23] MEDS ORDERED: Meclizine HCl 25 MG TAB PO PRN ×2 (14:21→14:26)
[2021-01-23] MEDS ORDERED: Metoclopramide HCl 10 MG TAB PO SCH (15:00)
[2021-01-23] MEDS ORDERED: Atorvastatin Calcium 10 MG TAB PO SCH (21:00)
[2021-01-24] MEDS ORDERED: Levothyroxine Sodium 50 MCG TAB PO SCH (06:00)
[2021-01-24 07:56] VITALS: TEMP 97.7
[2021-01-24] MEDS: Ondansetron PF 4 MG/2 ML Vial IVP PRN (08:07)
[2021-01-24] MEDS: Timolol 0.5% Ophth Soln 5 ml Bottle EA EYE SCH (08:07)
[2021-01-24] MEDS ORDERED: Aspirin 81 mg Enteric Coated Tablet PO SCH (09:00)
[2021-01-24 12:05] VITALS: BP 142/80
== END 2021-01-24 15:30 | disposition home health service (06) ==
LOC: 2SE 21:40
PROVIDERS: ADMIT Internal Medicine; ATTEND Internal Medicine
DX: R42 Dizziness and giddiness (principal); I12.9 Hypertensive chronic kidney disease with stage 1 through stage 4 chronic kidney disease, or unspecified chronic kidney disease; N18.2 Chronic kidney disease, stage 2 (mild); D63.1 Anemia in chronic kidney disease; E78.5 Hyperlipidemia, unspecified; E03.9 Hypothyroidism, unspecified; H40.9 Unspecified glaucoma; I34.0 Nonrheumatic mitral (valve) insufficiency; K91.1 Postgastric surgery syndromes; K31.84 Gastroparesis; I45.10 Unspecified right bundle-branch block; I77.810 Thoracic aortic ectasia; Z79.82 Long term (current) use of aspirin; Z79.899 Other long term (current) drug therapy; Z88.8 Allergy status to other drugs, medicaments and biological substances; Z20.822 Contact with and (suspected) exposure to COVID-19
CPT/HCPCS: 0240U; 70551; 71045; 80048; 80061; 82607; 82746; 83735; 84443; 84484; 85025; 93306; 93880; 97116; 97139 ×3; 97535; 36415; 96374; 96376; G0378; J2405

== ENCOUNTER 2021-09-06 15:56 | Outpatient (CLI) | payer MEDICARE, BC | END 2021-09-06 15:57 | disposition home or self-care (01) | LOC: SCSMRI 15:56 | PROVIDERS: ATTEND Otolaryngology Plastic Surgery within the Head & Neck | DX: R42 Dizziness and giddiness (principal) | CPT/HCPCS: 70553; 82565 ==

== ENCOUNTER 2021-09-09 09:10 | Outpatient (CLI) | payer MEDICARE, BC | END 2021-09-09 09:11 | disposition home or self-care (01) | LOC: BICMAMMO 09:10 | PROVIDERS: ATTEND Internal Medicine | DX: Z12.31 Encounter for screening mammogram for malignant neoplasm of breast (principal); Z91.89 Other specified personal risk factors, not elsewhere classified | CPT/HCPCS: 77063; 77067 ==

== ENCOUNTER 2021-09-16 17:45 | Inpatient (IN) | payer MEDICARE, BC ==
[2021-09-16 18:47] LABS: Bilirubin Negative (Negative); Blood, Urine Negative (Negative); Clarity Clear (Clear); Glucose, Urine (Dipstick) Normal (Negative); Ketone, Urine 10 mg/dL (Negative); Leukocyte 75 Leu/uL (Negative); Nitrite Negative (Negative); Protein, Urine (Dipstick) 20 mg/dL (Neg-Trace); Squamous Epithelial 0-3 HPF (0-3); Urobilinogen 3 mg/dL (Less than 2)
[2021-09-16 18:48] LABS: Bacteria/HPF 1+ HPF (None Seen)
[2021-09-16] MEDS ORDERED: Morphine 4 MG/ML VIAL ONE (18:48)
[2021-09-16] MEDS ORDERED: Ondansetron PF 4 MG/2 ML Vial ONE ×2 (18:49→20:31)
[2021-09-16 18:50] LABS: #Eosinphils 0.1 thou/uL (0.0-0.7); #Lymphocytes 2.1 thou/uL (1.20-3.40); #Monocytes 1.1 thou/uL (0.11-0.59); %Basophils 0.2 % (0.0-1.0); %Eosinophils 0.3 % (0.0-10.0); %Lymphocytes 12.3 % (21.0-51.0); %Monocytes 6.3 % (0.0-10.0); %Neutrophils 80.9 % (42.0-75.0); Hemoglobin 13.6 g/dL (12.0-16.0); Mean Corpuscular HGB CONC 33.3 g/dL (32.0-36.0); Mean Corpuscular Hemoglobin 31.9 pg (27.0-31.0); Mean Corpuscular Volume 95.6 fL (78.0-98.0); Mean Platelet Volume 8.5 fL (7.4-10.4); Platelet Count 285 thou/uL (130-400); RBC Distribution Width 12.4 % (11.5-14.5); Red Blood Cell (RBC) Count 4.28 mill/uL (4.20-5.40); White Blood Cell (WBC) Count 17.3 thou/uL (4.8-10.8)
[2021-09-16 19:12] LABS: ALT (SGPT) 17 U/L (8-55); AST (SGOT) 24 U/L (5-34); Albumin 4.3 g/dL (3.4-4.8); Alkaline Phosphatase 73 U/L (40-110); Anion Gap 15 mmol/L (10-20); BUN (Urea Nitrogen) 23 mg/dL (9.8-20.1); Bilirubin, Total 0.8 mg/dL (0.2-1.2); Calc. Creatinine Clearance 0 mL/min (70-130); Carbon Dioxide 26 mmol/L (23-31); Chloride 103 mmol/L (98-107); Globulin 3.1 g/dL (2.4-3.5); Glucose 127 mg/dL (83-110); Potassium 4.4 mmol/L (3.5-5.1); Protein, Total 7.4 g/dL (5.8-8.1); Sodium 140 mmol/L (136-145)
[2021-09-16 19:27] LABS: Lipase 1846 U/L (8-78)
[2021-09-16 22:45] LABS: Cardiac Risk 3.4 (Less than 4.5)
[2021-09-16] MEDS ORDERED: Sodium Chloride 0.9% 1,000 ML IV SCH (23:30)
[2021-09-16] MEDS ORDERED: Ondansetron ODT 4 MG TAB SL PRN (23:30)
[2021-09-17 00:14] VITALS: BMI 23.3
[2021-09-17] MEDS: Ondansetron PF 4 MG/2 ML Vial IVP PRN ×2 (01:34→10:53)
[2021-09-17] MEDS ORDERED: Morphine 4 MG/ML VIAL SLOW IVP PRN (01:46)
[2021-09-17] MEDS ORDERED: Sodium Chloride 0.9% 1,000 ML IV SCH (05:43)
[2021-09-17 07:08] LABS: #Eosinphils 0.2 thou/uL (0.0-0.7); #Lymphocytes 2.8 thou/uL (1.20-3.40); #Monocytes 1.1 thou/uL (0.11-0.59); #Neutrophils 5.7 thou/uL (1.40-6.50); %Basophils 0.4 % (0.0-1.0); %Eosinophils 1.9 % (0.0-10.0); %Lymphocytes 28.7 % (21.0-51.0); %Monocytes 11.3 % (0.0-10.0); %Neutrophils 57.7 % (42.0-75.0); Hemoglobin 11.4 g/dL (12.0-16.0); Mean Corpuscular Volume 97.1 fL (78.0-98.0); Mean Platelet Volume 7.9 fL (7.4-10.4); Platelet Count 265 thou/uL (130-400); RBC Distribution Width 12.2 % (11.5-14.5); Red Blood Cell (RBC) Count 3.55 mill/uL (4.20-5.40); White Blood Cell (WBC) Count 9.8 thou/uL (4.8-10.8)
[2021-09-17 07:54] LABS: ALT (SGPT) 12 U/L (8-55); AST (SGOT) 17 U/L (5-34); Albumin 3.3 g/dL (3.4-4.8); Alkaline Phosphatase 56 U/L (40-110); Anion Gap 10 mmol/L (10-20); BUN (Urea Nitrogen) 17 mg/dL (9.8-20.1); Bilirubin, Total 0.9 mg/dL (0.2-1.2); Calc. Creatinine Clearance 64 mL/min (70-130); Calcium 8.3 mg/dL (7.8-10.44); Carbon Dioxide 27 mmol/L (23-31); Chloride 107 mmol/L (98-107); Globulin 2.4 g/dL (2.4-3.5); Glucose 84 mg/dL (83-110); Potassium 3.5 mmol/L (3.5-5.1); Protein, Total 5.7 g/dL (5.8-8.1); Sodium 140 mmol/L (136-145)
[2021-09-17] MEDS: Pantoprazole 40 MG VIAL IVP SCH (08:16)
[2021-09-17] MEDS: Enoxaparin Sodium 40 MG/0.4 ML SYRINGE SC SCH (08:16)
[2021-09-17] MEDS: Sodium Chloride 0.9% 1,000 ML IV SCH ×2 (14:45→21:38)
[2021-09-17] MEDS ORDERED: Cyanocobalamin 1000 MCG/ML VIAL IM SCH (14:45)
[2021-09-17] MEDS ORDERED: Ondansetron PF 4 MG/2 ML Vial IVP PRN (16:00)
[2021-09-17 16:21] LABS: SARS-CoV-2 PCR by NAA Not Detected (NotDetected)
[2021-09-17] MEDS: Atorvastatin Calcium 10 MG TAB PO SCH (21:15)
[2021-09-17] MEDS: Amlodipine 5 MG TAB PO SCH (21:17)
[2021-09-17] MEDS: Acetaminophen 325 MG TAB PO PRN (21:41)
[2021-09-17] MEDS: Timolol 0.5% Ophth Soln 5 ml Bottle EA EYE SCH (21:41)
[2021-09-18] MEDS: Levothyroxine Sodium 50 MCG TAB PO SCH (05:43)
[2021-09-18 06:19] LABS: #Basophils 0.1 thou/uL (0.0-0.2); #Eosinphils 0.3 thou/uL (0.0-0.7); #Lymphocytes 2.4 thou/uL (1.20-3.40); #Monocytes 0.9 thou/uL (0.11-0.59); #Neutrophils 3.2 thou/uL (1.40-6.50); %Basophils 0.8 % (0.0-1.0); %Eosinophils 4.7 % (0.0-10.0); %Lymphocytes 34.5 % (21.0-51.0); %Monocytes 12.7 % (0.0-10.0); %Neutrophils 47.3 % (42.0-75.0); Hemoglobin 11.8 g/dL (12.0-16.0); Mean Corpuscular HGB CONC 32.6 g/dL (32.0-36.0); Mean Corpuscular Hemoglobin 31.6 pg (27.0-31.0); Mean Corpuscular Volume 96.9 fL (78.0-98.0); Mean Platelet Volume 7.9 fL (7.4-10.4); Platelet Count 263 thou/uL (130-400); RBC Distribution Width 12.1 % (11.5-14.5); Red Blood Cell (RBC) Count 3.75 mill/uL (4.20-5.40); White Blood Cell (WBC) Count 6.8 thou/uL (4.8-10.8)
[2021-09-18 06:45] LABS: ALT (SGPT) 11 U/L (8-55); AST (SGOT) 17 U/L (5-34); Albumin 3.3 g/dL (3.4-4.8); Alkaline Phosphatase 61 U/L (40-110); Anion Gap 13 mmol/L (10-20); BUN (Urea Nitrogen) 8 mg/dL (9.8-20.1); Bilirubin, Total 0.9 mg/dL (0.2-1.2); Calc. Creatinine Clearance 66 mL/min (70-130); Calcium 8.8 mg/dL (7.8-10.44); Carbon Dioxide 24 mmol/L (23-31); Chloride 108 mmol/L (98-107); Globulin 2.6 g/dL (2.4-3.5); Glucose 81 mg/dL (83-110); Potassium 3.6 mmol/L (3.5-5.1); Protein, Total 5.9 g/dL (5.8-8.1); Sodium 141 mmol/L (136-145)
[2021-09-18] MEDS: Aspirin 81 mg Enteric Coated Tablet PO SCH (08:19)
[2021-09-18] MEDS: Pantoprazole 40 MG VIAL IVP SCH (08:20)
[2021-09-18] MEDS: Timolol 0.5% Ophth Soln 5 ml Bottle EA EYE SCH ×2 (08:21→21:02)
[2021-09-18] MEDS: Enoxaparin Sodium 40 MG/0.4 ML SYRINGE SC SCH (08:21)
[2021-09-18] MEDS: Acetaminophen 325 MG TAB PO PRN ×2 (10:43→21:16)
[2021-09-18] MEDS: Polyethylene Glycol 3350 17 GM Packet PO PRN (15:35)
[2021-09-18] MEDS: Atorvastatin Calcium 10 MG TAB PO SCH (21:02)
[2021-09-18] MEDS: Amlodipine 5 MG TAB PO SCH (21:02)
[2021-09-19] MEDS: Levothyroxine Sodium 50 MCG TAB PO SCH (05:37)
[2021-09-19 07:00] LABS: #Eosinphils 0.2 thou/uL (0.0-0.7); #Lymphocytes 2.1 thou/uL (1.20-3.40); #Monocytes 0.8 thou/uL (0.11-0.59); #Neutrophils 3.2 thou/uL (1.40-6.50); %Basophils 0.7 % (0.0-1.0); %Eosinophils 3.6 % (0.0-10.0); %Lymphocytes 33.2 % (21.0-51.0); %Monocytes 12.6 % (0.0-10.0); %Neutrophils 49.8 % (42.0-75.0); Hemoglobin 13.1 g/dL (12.0-16.0); Mean Corpuscular HGB CONC 32.6 g/dL (32.0-36.0); Mean Corpuscular Hemoglobin 31.2 pg (27.0-31.0); Mean Corpuscular Volume 95.6 fL (78.0-98.0); Mean Platelet Volume 7.7 fL (7.4-10.4); Platelet Count 290 thou/uL (130-400); RBC Distribution Width 12.1 % (11.5-14.5); Red Blood Cell (RBC) Count 4.22 mill/uL (4.20-5.40); White Blood Cell (WBC) Count 6.3 thou/uL (4.8-10.8)
[2021-09-19 07:21] LABS: ALT (SGPT) 13 U/L (8-55); AST (SGOT) 21 U/L (5-34); Albumin 3.8 g/dL (3.4-4.8); Alkaline Phosphatase 64 U/L (40-110); Anion Gap 15 mmol/L (10-20); BUN (Urea Nitrogen) 9 mg/dL (9.8-20.1); Bilirubin, Total 1.5 mg/dL (0.2-1.2); Calc. Creatinine Clearance 61 mL/min (70-130); Calcium 9.6 mg/dL (7.8-10.44); Carbon Dioxide 24 mmol/L (23-31); Chloride 105 mmol/L (98-107); Glucose 86 mg/dL (83-110); Magnesium 2.1 mg/dL (1.6-2.6); Potassium 3.7 mmol/L (3.5-5.1); Protein, Total 6.8 g/dL (5.8-8.1); Sodium 140 mmol/L (136-145)
[2021-09-19] MEDS: Aspirin 81 mg Enteric Coated Tablet PO SCH (08:48)
[2021-09-19] MEDS: Pantoprazole 40 MG VIAL IVP SCH (08:48)
[2021-09-19] MEDS: Timolol 0.5% Ophth Soln 5 ml Bottle EA EYE SCH (08:51)
[2021-09-19] MEDS: Enoxaparin Sodium 40 MG/0.4 ML SYRINGE SC SCH (08:53)
[2021-09-19 08:57] VITALS: BP 133/78
[2021-09-19] MEDS: Polyethylene Glycol 3350 17 GM Packet PO PRN (09:04)
[2021-09-19 09:27] VITALS: TEMP 97.3
== END 2021-09-19 17:43 | disposition home or self-care (01) | DRG 393 ==
LOC: ERS 17:45 → T4-A 22:24
PROVIDERS: ADMIT Internal Medicine; ATTEND Internal Medicine
DX: K43.9 Ventral hernia without obstruction or gangrene (principal); K85.90 Acute pancreatitis without necrosis or infection, unspecified; Z20.822 Contact with and (suspected) exposure to COVID-19; I50.32 Chronic diastolic (congestive) heart failure; N39.0 Urinary tract infection, site not specified; I34.0 Nonrheumatic mitral (valve) insufficiency; E03.9 Hypothyroidism, unspecified; E78.5 Hyperlipidemia, unspecified; E78.00 Pure hypercholesterolemia, unspecified; I11.0 Hypertensive heart disease with heart failure; K21.9 Gastro-esophageal reflux disease without esophagitis; Z88.8 Allergy status to other drugs, medicaments and biological substances; Z79.82 Long term (current) use of aspirin; Z79.890 Hormone replacement therapy; Z79.899 Other long term (current) drug therapy; Z82.49 Family history of ischemic heart disease and other diseases of the circulatory system; Z83.3 Family history of diabetes mellitus; Z90.49 Acquired absence of other specified parts of digestive tract; Z90.710 Acquired absence of both cervix and uterus
CPT/HCPCS: 36415; 74177; 80053; 80061; 81003; 81015; 83690; 83735; 85025; 87077; 87086; 87186; 96374; 96375; C9113; J1650; J1956; J2270; J2405; J7050; U0003; U0005

== ENCOUNTER 2022-03-24 11:22 | Inpatient (IN) | payer MEDICARE, BC ==
[2022-03-24] MEDS ORDERED: Iopamidol-370 76% 500 ML 1 ML ONE (11:38)
[2022-03-24 12:59] LABS: #Eosinphils 0.1 thou/uL (0.0-0.7); #Lymphocytes 1.9 thou/uL (1.20-3.40); #Monocytes 0.9 thou/uL (0.11-0.59); #Neutrophils 9.1 thou/uL (1.40-6.50); %Basophils 0.4 % (0.0-1.0); %Eosinophils 0.6 % (0.0-10.0); %Lymphocytes 15.6 % (21.0-51.0); %Monocytes 7.7 % (0.0-10.0); %Neutrophils 75.7 % (42.0-75.0); Mean Corpuscular HGB CONC 31.7 g/dL (32.0-36.0); Mean Corpuscular Volume 97.6 fL (78.0-98.0); Mean Platelet Volume 8.3 fL (7.4-10.4); Platelet Count 295 thou/uL (130-400); RBC Distribution Width 13.4 % (11.5-14.5); Red Blood Cell (RBC) Count 4.53 mill/uL (4.20-5.40)
[2022-03-24 13:22] LABS: ALT (SGPT) 17 U/L (8-55); AST (SGOT) 22 U/L (5-34); Albumin 4.4 g/dL (3.4-4.8); Alkaline Phosphatase 68 U/L (40-110); Anion Gap 18 mmol/L (10-20); BUN (Urea Nitrogen) 19 mg/dL (9.8-20.1); Calc. Creatinine Clearance 0 mL/min (70-130); Calcium 10.1 mg/dL (7.8-10.44); Carbon Dioxide 25 mmol/L (23-31); Chloride 102 mmol/L (98-107); Globulin 3.7 g/dL (2.4-3.5); Glucose 116 mg/dL (83-110); Lipase 171 U/L (8-78); Potassium 4.5 mmol/L (3.5-5.1); Protein, Total 8.1 g/dL (5.8-8.1); Sodium 140 mmol/L (136-145)
[2022-03-24] MEDS ORDERED: Ondansetron PF 4 MG/2 ML Vial ONE (15:03)
[2022-03-24] MEDS ORDERED: Bisacodyl 5 MG TAB PO PRN (15:16)
[2022-03-24] MEDS ORDERED: Bisacodyl 10 MG SUPP PR PRN (15:16)
[2022-03-24] MEDS ORDERED: Ondansetron ODT 4 MG TAB PO PRN (15:16)
[2022-03-24] MEDS ORDERED: Senokot S 8.6-50 MG TAB PO PRN (15:16)
[2022-03-24] MEDS ORDERED: Metoclopramide HCl 10 MG/2 ML VIAL IVP SCH (16:15)
[2022-03-24] MEDS ORDERED: Acetaminophen 650 MG Suppository ONE (16:31)
[2022-03-24] MEDS ORDERED: Acetaminophen 325 MG Suppository ONE (16:31)
[2022-03-24 18:06] LABS: Hemoglobin A1c 5.5 % (4.0-6.0)
[2022-03-24] MEDS: Lactated Ringer's 1,000 ML IV SCH (18:20)
[2022-03-24] MEDS ORDERED: Famotidine/PF 20 mg/2ml Vial SLOW IVP SCH (21:00)
[2022-03-24] MEDS: Famotidine 20 MG TAB PO SCH (21:08)
[2022-03-24] MEDS: Metoclopramide HCl 10 MG/2 ML VIAL IVP SCH (21:08)
[2022-03-24] MEDS: Acetaminophen 325 MG TAB PO PRN (21:54)
[2022-03-24 22:15] VITALS: BMI 23.8
[2022-03-25] MEDS: Lactated Ringer's 1,000 ML IV SCH ×3 (00:25→22:09)
[2022-03-25] MEDS: Metoclopramide HCl 10 MG/2 ML VIAL IVP SCH (05:12)
[2022-03-25 06:12] LABS: #Basophils 0.1 thou/uL (0.0-0.2); #Eosinphils 0.2 thou/uL (0.0-0.7); #Lymphocytes 2.5 thou/uL (1.20-3.40); #Monocytes 0.8 thou/uL (0.11-0.59); %Basophils 1.3 % (0.0-1.0); %Eosinophils 2.6 % (0.0-10.0); %Lymphocytes 33.3 % (21.0-51.0); %Monocytes 10.1 % (0.0-10.0); %Neutrophils 52.7 % (42.0-75.0); Hemoglobin 11.7 g/dL (12.0-16.0); Mean Corpuscular HGB CONC 32.5 g/dL (32.0-36.0); Mean Corpuscular Hemoglobin 31.6 pg (27.0-31.0); Mean Corpuscular Volume 97.3 fL (78.0-98.0); Mean Platelet Volume 8.6 fL (7.4-10.4); Platelet Count 257 thou/uL (130-400); RBC Distribution Width 13.1 % (11.5-14.5); White Blood Cell (WBC) Count 7.5 thou/uL (4.8-10.8)
[2022-03-25 07:24] LABS: ALT (SGPT) 10 U/L (8-55); AST (SGOT) 16 U/L (5-34); Albumin 3.3 g/dL (3.4-4.8); Alkaline Phosphatase 51 U/L (40-110); Anion Gap 13 mmol/L (10-20); BUN (Urea Nitrogen) 12 mg/dL (9.8-20.1); Bilirubin, Total 1.5 mg/dL (0.2-1.2); Calc. Creatinine Clearance 61 mL/min (70-130); Calcium 8.7 mg/dL (7.8-10.44); Carbon Dioxide 27 mmol/L (23-31); Cardiac Risk 4.2 (Less than 4.5); Chloride 106 mmol/L (98-107); Cholesterol 185 mg/dl (< 200 Desired); Globulin 2.5 g/dL (2.4-3.5); Glucose 78 mg/dL (83-110); HDL Cholesterol 44 mg/dL (>60 Neg Risk); LDL Cholesterol, Calculated 106 mg/dL; Magnesium 1.9 mg/dL (1.6-2.6); Protein, Total 5.8 g/dL (5.8-8.1); Sodium 142 mmol/L (136-145); Triglycerides 175 mg/dL (Less than 150)
[2022-03-25] MEDS: Famotidine 20 MG TAB PO SCH ×2 (08:04→22:08)
[2022-03-25] MEDS: Acetaminophen 325 MG TAB PO PRN (12:28)
[2022-03-25] MEDS: Propranolol 10 MG TAB PO SCH ×2 (18:40→22:09)
[2022-03-25] MEDS: Timolol 0.5% Ophth Soln 5 ml Bottle EA EYE SCH (22:09)
[2022-03-26] MEDS ORDERED: Escitalopram Oxalate 10 mg Tablet PO SCH ×2 (00:45→21:00)
[2022-03-26] MEDS: Acetaminophen 325 MG TAB PO PRN ×2 (06:28→22:29)
[2022-03-26] MEDS: Ondansetron PF 4 MG/2 ML Vial IVP PRN ×2 (06:28→13:09)
[2022-03-26] MEDS: Lactated Ringer's 1,000 ML IV SCH ×2 (06:46→08:25)
[2022-03-26 06:58] LABS: #Basophils 0.1 thou/uL (0.0-0.2); #Eosinphils 0.2 thou/uL (0.0-0.7); #Lymphocytes 2.1 thou/uL (1.20-3.40); #Neutrophils 5.6 thou/uL (1.40-6.50); %Basophils 0.7 % (0.0-1.0); %Eosinophils 2.1 % (0.0-10.0); %Lymphocytes 23.5 % (21.0-51.0); %Monocytes 11.1 % (0.0-10.0); %Neutrophils 62.6 % (42.0-75.0); Hemoglobin 11.7 g/dL (12.0-16.0); Mean Corpuscular HGB CONC 31.9 g/dL (32.0-36.0); Mean Corpuscular Hemoglobin 31.3 pg (27.0-31.0); Mean Corpuscular Volume 98.3 fL (78.0-98.0); Mean Platelet Volume 8.9 fL (7.4-10.4); Platelet Count 249 thou/uL (130-400); RBC Distribution Width 13.4 % (11.5-14.5); Red Blood Cell (RBC) Count 3.74 mill/uL (4.20-5.40); White Blood Cell (WBC) Count 8.9 thou/uL (4.8-10.8)
[2022-03-26 07:31] LABS: AST (SGOT) 19 U/L (5-34); Albumin 3.6 g/dL (3.4-4.8); Alkaline Phosphatase 53 U/L (40-110); Anion Gap 15 mmol/L (10-20); BUN (Urea Nitrogen) 8 mg/dL (9.8-20.1); Bilirubin, Total 1.6 mg/dL (0.2-1.2); Calc. Creatinine Clearance 62 mL/min (70-130); Calcium 9.6 mg/dL (7.8-10.44); Carbon Dioxide 26 mmol/L (23-31); Chloride 105 mmol/L (98-107); Globulin 2.7 g/dL (2.4-3.5); Glucose 86 mg/dL (83-110); Potassium 3.7 mmol/L (3.5-5.1); Protein, Total 6.3 g/dL (5.8-8.1); Sodium 142 mmol/L (136-145)
[2022-03-26 07:32] LABS: ALT (SGPT) 13 U/L (8-55); Magnesium 1.8 mg/dL (1.6-2.6)
[2022-03-26] MEDS: Timolol 0.5% Ophth Soln 5 ml Bottle EA EYE SCH ×2 (08:25→20:07)
[2022-03-26] MEDS: Famotidine 20 MG TAB PO SCH ×2 (08:25→20:06)
[2022-03-26] MEDS: Propranolol 10 MG TAB PO SCH ×3 (08:25→20:06)
[2022-03-26] MEDS ORDERED: MD-Gastroview 120 ML BOT ONE (13:35)
[2022-03-26] MEDS ORDERED: Lactated Ringer's 1,000 ML IV SCH (15:33)
[2022-03-26 16:24] LABS: Bacteria/HPF 2+ HPF (None Seen); Bilirubin Negative (Negative); Blood, Urine Negative (Negative); Clarity Clear (Clear); Glucose, Urine (Dipstick) Normal (Negative); Ketone, Urine 10 mg/dL (Negative); Leukocyte 75 Leu/uL (Negative); Nitrite 2+ (Negative); Protein, Urine (Dipstick) Negative (Neg-Trace); RBC/HPF 0-3 HPF (0-3); Specific Gravity, Urine 1.017 (1.002-1.036); Squamous Epithelial 0-3 HPF (0-3); Urobilinogen Normal mg/dL (Less than 2); WBC/HPF 21-50 HPF (0-3)
[2022-03-26 16:26] LABS: Urine Culture Reflex Yes Yes
[2022-03-27] MEDS ORDERED: Levothyroxine Sodium 50 MCG TAB PO SCH (06:00)
[2022-03-27 06:13] LABS: #Eosinphils 0.1 thou/uL (0.0-0.7); #Lymphocytes 2.6 thou/uL (1.20-3.40); #Monocytes 0.8 thou/uL (0.11-0.59); #Neutrophils 4.2 thou/uL (1.40-6.50); %Basophils 0.5 % (0.0-1.0); %Eosinophils 1.7 % (0.0-10.0); %Lymphocytes 33.4 % (21.0-51.0); %Monocytes 10.7 % (0.0-10.0); %Neutrophils 53.7 % (42.0-75.0); Hemoglobin 11.5 g/dL (12.0-16.0); Mean Corpuscular HGB CONC 31.9 g/dL (32.0-36.0); Mean Corpuscular Hemoglobin 31.4 pg (27.0-31.0); Mean Corpuscular Volume 98.2 fL (78.0-98.0); Mean Platelet Volume 8.5 fL (7.4-10.4); Platelet Count 229 thou/uL (130-400); RBC Distribution Width 13.4 % (11.5-14.5); Red Blood Cell (RBC) Count 3.66 mill/uL (4.20-5.40); White Blood Cell (WBC) Count 7.8 thou/uL (4.8-10.8)
[2022-03-27 06:35] LABS: ALT (SGPT) 12 U/L (8-55); AST (SGOT) 14 U/L (5-34); Albumin 3.4 g/dL (3.4-4.8); Alkaline Phosphatase 52 U/L (40-110); Anion Gap 12 mmol/L (10-20); BUN (Urea Nitrogen) 7 mg/dL (9.8-20.1); Bilirubin, Total 0.9 mg/dL (0.2-1.2); Calc. Creatinine Clearance 54 mL/min (70-130); Calcium 8.8 mg/dL (7.8-10.44); Carbon Dioxide 27 mmol/L (23-31); Chloride 104 mmol/L (98-107); Globulin 2.7 g/dL (2.4-3.5); Glucose 86 mg/dL (83-110); Magnesium 1.6 mg/dL (1.6-2.6); Potassium 3.4 mmol/L (3.5-5.1); Protein, Total 6.1 g/dL (5.8-8.1); Sodium 140 mmol/L (136-145)
[2022-03-27] MEDS: Famotidine 20 MG TAB PO SCH (08:04)
[2022-03-27] MEDS: Timolol 0.5% Ophth Soln 5 ml Bottle EA EYE SCH (08:04)
[2022-03-27] MEDS: Propranolol 10 MG TAB PO SCH ×2 (08:04→15:31)
[2022-03-27 08:24] VITALS: BP 153/83; TEMP 97.7
[2022-03-27] MEDS ORDERED: Aspirin 81 mg Enteric Coated Tablet PO SCH (09:00)
[2022-03-28] MEDS ORDERED: ESTRADIOL TOP SCH (09:00)
== END 2022-03-27 16:43 | disposition home or self-care (01) | DRG 389 ==
LOC: ERS 11:22 → T4-A 15:19 → OBSVTOIN 03-25 15:14
PROVIDERS: ADMIT Internal Medicine; ATTEND Internal Medicine
DX: K91.31 Postprocedural partial intestinal obstruction (principal); I50.32 Chronic diastolic (congestive) heart failure; Z20.822 Contact with and (suspected) exposure to COVID-19; E03.9 Hypothyroidism, unspecified; E78.5 Hyperlipidemia, unspecified; K21.9 Gastro-esophageal reflux disease without esophagitis; H40.9 Unspecified glaucoma; I11.0 Hypertensive heart disease with heart failure; K43.9 Ventral hernia without obstruction or gangrene; Z90.49 Acquired absence of other specified parts of digestive tract; Z90.710 Acquired absence of both cervix and uterus; Z98.84 Bariatric surgery status; Z88.1 Allergy status to other antibiotic agents; Z88.8 Allergy status to other drugs, medicaments and biological substances; Z79.890 Hormone replacement therapy; Z79.899 Other long term (current) drug therapy; Y83.8 Other surgical procedures as the cause of abnormal reaction of the patient, or of later complication, without mention of misadventure at the time of the procedure
CPT/HCPCS: 36415; 36416; 71045; 74177; 74250; 80053; 80061; 81001; 83036; 83605; 83690; 83735; 84443; 84484; 85025; 87077; 87086; 93005; 96361; 96375; 96376; G0378; J1956; J2405; J2765; J7120; S0028; U0003; U0005

== ENCOUNTER 2022-09-15 10:58 | Outpatient (CLI) | payer MEDICARE, BC | END 2022-09-15 10:59 | disposition home or self-care (01) | LOC: BICMAMMO 10:58 | PROVIDERS: ATTEND Obstetrics & Gynecology | DX: Z12.31 Encounter for screening mammogram for malignant neoplasm of breast (principal); Z91.89 Other specified personal risk factors, not elsewhere classified | CPT/HCPCS: 77063; 77067 ==

== ENCOUNTER 2022-10-21 08:04 | Outpatient (CLI) | payer MEDICARE, BC | END 2022-10-21 08:05 | disposition home or self-care (01) | LOC: TBSIIMAG 08:04 | PROVIDERS: ATTEND Neurological Surgery | DX: M51.16 Intervertebral disc disorders with radiculopathy, lumbar region (principal); M47.812 Spondylosis without myelopathy or radiculopathy, cervical region; M99.51 Intervertebral disc stenosis of neural canal of cervical region; M50.31 Other cervical disc degeneration, high cervical region; M48.02 Spinal stenosis, cervical region; M50.321 Other cervical disc degeneration at C4-C5 level; M25.78 Osteophyte, vertebrae; M50.323 Other cervical disc degeneration at C6-C7 level; M47.813 Spondylosis without myelopathy or radiculopathy, cervicothoracic region | CPT/HCPCS: 72141; 72148 ==

== ENCOUNTER 2023-01-11 09:01 | Outpatient (CLI) | payer MEDICARE, BC | END 2023-01-11 09:02 | disposition home or self-care (01) | LOC: MRI 09:01 | DX: R26.81 Unsteadiness on feet (principal) | CPT/HCPCS: 70551 ==

== ENCOUNTER 2023-08-30 08:17 | Outpatient (CLI) | payer MEDICARE, BC | END 2023-08-30 08:18 | disposition home or self-care (01) | LOC: BICMAMMO 08:17 | PROVIDERS: ATTEND Family Medicine | DX: Z13.820 Encounter for screening for osteoporosis (principal); M81.0 Age-related osteoporosis without current pathological fracture; M85.88 Other specified disorders of bone density and structure, other site | CPT/HCPCS: 77080 ==

== ENCOUNTER 2023-10-19 11:01 | Outpatient (CLI) | payer MEDICARE, BC | END 2023-10-19 11:02 | disposition home or self-care (01) | LOC: BICMAMMO 11:01 | PROVIDERS: ATTEND Obstetrics & Gynecology | DX: Z12.31 Encounter for screening mammogram for malignant neoplasm of breast (principal); Z91.89 Other specified personal risk factors, not elsewhere classified | CPT/HCPCS: 77063; 77067 ==

== ENCOUNTER 2024-03-20 09:04 | Outpatient (CLI) | payer MEDICARE, BC | END 2024-03-20 09:05 | disposition home or self-care (01) | LOC: BICRAD 09:04 | PROVIDERS: ATTEND Family Medicine | DX: R61 Generalized hyperhidrosis (principal); J90 Pleural effusion, not elsewhere classified | CPT/HCPCS: 71046 ==

== ENCOUNTER 2024-04-24 13:13 | Inpatient (IN) | payer MEDICARE, BC ==
[2024-04-24 15:14] LABS: #Basophils 0.04 10x3/uL (0.0-0.2); %Basophils 0.2 % (0.0-1.0); %Eosinophils 0.5 % (0.0-10.0); %Monocytes 5.6 % (0.0-10.0); %Neutrophils 77.3 % (42.0-75.0); Hematocrit 38.6 % (36.0-47.0); Hemoglobin 12.4 g/dL (12.0-16.0); Mean Corpuscular HGB CONC 32.1 g/dL (32.0-36.0); Mean Corpuscular Volume 93.5 fL (78.0-98.0); Mean Platelet Volume 10.5 fL (7.4-10.4); Platelet Count 289 10x3/uL (130-400); RBC Distribution Width 14.9 % (11.5-14.5); Red Blood Cell (RBC) Count 4.13 mill/uL (4.20-5.40)
[2024-04-24 15:26] LABS: ALT (SGPT) 15 U/L (8-55); AST (SGOT) 23 U/L (5-34); Albumin 3.4 g/dL (3.4-4.8); Alkaline Phosphatase 64 U/L (40-110); Anion Gap 14 mmol/L (10-20); BUN (Urea Nitrogen) 27 mg/dL (9.8-20.1); Bilirubin, Total 0.6 mg/dL (0.2-1.2); Calc. Creatinine Clearance 0 mL/min (70-130); Calcium 9.1 mg/dL (7.8-10.44); Carbon Dioxide 25 mmol/L (23-31); Chloride 105 mmol/L (98-107); Estimated GFR 70; Globulin 3.5 g/dL (2.4-3.5); Glucose 68 mg/dL (83-110); Potassium 3.9 mmol/L (3.5-5.1); Protein, Total 6.9 g/dL (5.8-8.1); Sodium 140 mmol/L (136-145)
[2024-04-24] MEDS ORDERED: Ondansetron PF 4 MG/2 ML Vial ONE (16:07)
[2024-04-24 16:18] LABS: Influenza A by NAA Not Detected (NotDetected); Influenza B by NAA Not Detected (NotDetected); SARS-CoV-2 NAA Rapid Test Not Detected (NotDetected)
[2024-04-24 17:18] LABS: Bacteria/HPF 3+ HPF (None Seen); Bilirubin Negative (Negative); Blood, Urine Negative (Negative); CAUTI Indications for Culture Dysuria,urgency,freq; Clarity Clear (Clear); Glucose, Urine (Dipstick) 70 mg/dL (Negative); Ketone, Urine 10 mg/dL (Negative); Leukocyte 75 Leu/uL (Negative); Nitrite 2+ (Negative); Protein, Urine (Dipstick) Negative (Neg-Trace); RBC/HPF 0-3 HPF (0-3); Specific Gravity, Urine 1.011 (1.002-1.036); Squamous Epithelial 0-3 HPF (0-3); Urobilinogen Normal mg/dL (Less than 2); WBC/HPF 0-3 HPF (0-3); pH, Urine 5.5 (5.0-9.0)
[2024-04-24 17:19] LABS: Urine Culture Reflex No No
[2024-04-24] MEDS ORDERED: Acetaminophen 500 MG TAB ONE (17:23)
[2024-04-24] MEDS ORDERED: LevoFLOXacin 750 mg/D5W 150 ml Premix Bag ONE (17:24)
[2024-04-24] MEDS ORDERED: Sodium Chloride 0.9% 100 ML ONE (18:35)
[2024-04-24] MEDS ORDERED: cefTRIAXone (ROCEPHIN) 1 GM VIAL ONE (18:35)
[2024-04-24] MEDS ORDERED: Ondansetron PF 4 MG/2 ML Vial IVP PRN (19:46)
[2024-04-24] MEDS ORDERED: Ondansetron ODT 4 MG TAB PO PRN (19:46)
[2024-04-24] MEDS ORDERED: Glucagon 1 MG/ML KIT IM PRN (20:06)
[2024-04-24] MEDS ORDERED: Dextrose 50% Abboject 50 ML SYRINGE SLOW IVP PRN (20:06)
[2024-04-24] MEDS ORDERED: Dextrose 5% in Water 1,000 ML IV PRN (20:06)
[2024-04-24 21:25] LABS: Magnesium 1.6 mg/dL (1.6-2.6)
[2024-04-24] MEDS ORDERED: Polyethylene Glycol 3350 17 GM Packet PO PRN (21:42)
[2024-04-24] MEDS: Midodrine HCl 5 MG TAB PO SCH (22:38)
[2024-04-24] MEDS: Propranolol 10 MG TAB PO SCH (22:38)
[2024-04-24] MEDS: Magnesium 2 GM/50 ML(in water) 2 GM in Premix 1 BAG IVPB SCH (22:38)
[2024-04-25] MEDS: Acetaminophen 325 MG TAB PO PRN (01:11)
[2024-04-25 01:29] VITALS: BMI 25.0
[2024-04-25] MEDS: Levothyroxine Sodium 50 MCG TAB PO SCH (05:40)
[2024-04-25 05:44] LABS: #Basophils 0.04 10x3/uL (0.0-0.2); %Basophils 0.4 % (0.0-1.0); %Eosinophils 1.4 % (0.0-10.0); %Lymphocytes 32.1 % (21.0-51.0); %Monocytes 10.6 % (0.0-10.0); %Neutrophils 55.3 % (42.0-75.0); Hematocrit 33.7 % (36.0-47.0); Mean Corpuscular HGB CONC 32.6 g/dL (32.0-36.0); Mean Corpuscular Volume 91.8 fL (78.0-98.0); Platelet Count 279 10x3/uL (130-400); RBC Distribution Width 14.7 % (11.5-14.5); Red Blood Cell (RBC) Count 3.67 mill/uL (4.20-5.40)
[2024-04-25 06:00] LABS: Anion Gap 12 mmol/L (10-20); BUN (Urea Nitrogen) 17 mg/dL (9.8-20.1); Calc. Creatinine Clearance 57 mL/min (70-130); Calcium 8.7 mg/dL (7.8-10.44); Carbon Dioxide 23 mmol/L (23-31); Chloride 111 mmol/L (98-107); Estimated GFR 77; Glucose 79 mg/dL (83-110); Potassium 3.9 mmol/L (3.5-5.1); Sodium 142 mmol/L (136-145)
[2024-04-25] MEDS: Midodrine HCl 5 MG TAB PO SCH (09:51)
[2024-04-25] MEDS: CO Q-10 CAPSULE 100 MG PO SCH (09:51)
[2024-04-25] MEDS: Timolol 0.5% Ophth Soln 5 ml Bottle EA EYE SCH (09:51)
[2024-04-25] MEDS: Propranolol 10 MG TAB PO SCH (09:51)
[2024-04-25] MEDS: Aspirin 81 mg Enteric Coated Tablet PO SCH (09:51)
[2024-04-25] MEDS ORDERED: Magnevist 469MG/ML 20 ML VIAL ONE (12:01)
[2024-04-25] MEDS: Magnesium 2 GM/50 ML(in water) 2 GM in Premix 1 BAG IVPB SCH (15:21)
[2024-04-25] MEDS: cefTRIAXone\\ROCEPHIN 1 GM in Sodium Chloride 0.9% 100 ML IVPB SCH (17:20)
[2024-04-25] MEDS: Senokot S 8.6-50 MG TAB PO SCH (21:12)
[2024-04-26 04:44] LABS: #Basophils 0.05 10x3/uL (0.0-0.2); %Basophils 0.6 % (0.0-1.0); %Eosinophils 1.5 % (0.0-10.0); %Lymphocytes 30.5 % (21.0-51.0); %Monocytes 11.6 % (0.0-10.0); %Neutrophils 55.6 % (42.0-75.0); Hematocrit 35.7 % (36.0-47.0); Hemoglobin 11.6 g/dL (12.0-16.0); Mean Corpuscular HGB CONC 32.5 g/dL (32.0-36.0); Mean Corpuscular Hemoglobin 29.4 pg (27.0-31.0); Mean Corpuscular Volume 90.6 fL (78.0-98.0); Mean Platelet Volume 11.1 fL (7.4-10.4); Platelet Count 284 10x3/uL (130-400); RBC Distribution Width 14.9 % (11.5-14.5); Red Blood Cell (RBC) Count 3.94 mill/uL (4.20-5.40)
[2024-04-26 04:59] LABS: Anion Gap 12 mmol/L (10-20); BUN (Urea Nitrogen) 13 mg/dL (9.8-20.1); Calc. Creatinine Clearance 57 mL/min (70-130); Carbon Dioxide 26 mmol/L (23-31); Chloride 109 mmol/L (98-107); Estimated GFR 77; Glucose 84 mg/dL (83-110); Potassium 4.4 mmol/L (3.5-5.1); Sodium 143 mmol/L (136-145)
[2024-04-26] MEDS: Polyethylene Glycol 3350 17 GM Packet PO SCH (09:34)
[2024-04-26 12:11] VITALS: BP 163/74; TEMP 98.4
== END 2024-04-26 15:20 | disposition home or self-care (01) | DRG 315 ==
LOC: ERS 13:13 → 2NO 18:32 → OBSVTOIN 04-25 10:29
PROVIDERS: ADMIT Physician Assistant; ATTEND Internal Medicine
DX: I95.9 Hypotension, unspecified (principal); I50.32 Chronic diastolic (congestive) heart failure; N39.0 Urinary tract infection, site not specified; S32.030A Wedge compression fracture of third lumbar vertebra, initial encounter for closed fracture; E86.0 Dehydration; E16.2 Hypoglycemia, unspecified; E78.5 Hyperlipidemia, unspecified; I11.0 Hypertensive heart disease with heart failure; E03.9 Hypothyroidism, unspecified; K21.9 Gastro-esophageal reflux disease without esophagitis; K59.09 Other constipation; K52.89 Other specified noninfective gastroenteritis and colitis; S01.512A Laceration without foreign body of oral cavity, initial encounter; X58.XXXA Exposure to other specified factors, initial encounter; I34.0 Nonrheumatic mitral (valve) insufficiency; Z88.8 Allergy status to other drugs, medicaments and biological substances; Z79.82 Long term (current) use of aspirin; Z90.49 Acquired absence of other specified parts of digestive tract; Z90.710 Acquired absence of both cervix and uterus
CPT/HCPCS: 36415; 36416; 51701; 70450; 70553; 71045; 74176; 76377; 80048; 80053; 81001; 83605; 83690; 83735; 84443; 85025; 87040; 87077; 87086; 87186; 93005; 93306; 96361; 96365; 96375; A9579; J0696; J1956; J2405; J3475

== ENCOUNTER 2024-09-12 09:58 | Outpatient (CLI) | payer MEDICARE, BC | END 2024-09-12 09:59 | disposition home or self-care (01) | LOC: MRI 09:58 | PROVIDERS: ATTEND Family Medicine Sports Medicine | DX: M75.112 Incomplete rotator cuff tear or rupture of left shoulder, not specified as traumatic (principal); S43.002A Unspecified subluxation of left shoulder joint, initial encounter; M94.8X1 Other specified disorders of cartilage, shoulder; M19.012 Primary osteoarthritis, left shoulder; M25.812 Other specified joint disorders, left shoulder ==

== ENCOUNTER 2024-11-08 09:47 | Outpatient (CLI) | payer MEDICARE, BC | END 2024-11-08 09:48 | disposition home or self-care (01) | LOC: BICMAMMO 09:47 | PROVIDERS: ATTEND Obstetrics & Gynecology | DX: Z12.31 Encounter for screening mammogram for malignant neoplasm of breast (principal); Z91.89 Other specified personal risk factors, not elsewhere classified | CPT/HCPCS: 77063; 77067 ==

== ENCOUNTER 2025-05-12 14:39 | Outpatient (CLI) | payer MEDICARE, BC | END 2025-05-12 14:40 | disposition home or self-care (01) | LOC: SCSMRI 14:39 | PROVIDERS: ATTEND Surgery | DX: M48.02 Spinal stenosis, cervical region (principal); M47.812 Spondylosis without myelopathy or radiculopathy, cervical region; M50.30 Other cervical disc degeneration, unspecified cervical region | CPT/HCPCS: 72050; 72141 ==

== ENCOUNTER 2025-09-08 13:02 | Outpatient (CLI) | payer MEDICARE, BC | END 2025-09-08 13:03 | disposition home or self-care (01) | LOC: BICRAD 13:02 | PROVIDERS: ATTEND Physician Assistant | DX: M47.22 Other spondylosis with radiculopathy, cervical region (principal); M48.02 Spinal stenosis, cervical region; Z98.890 Other specified postprocedural states | CPT/HCPCS: 72040 ==